=== PATIENT | male | born 1995 | race Caucasian/White ===

== ENCOUNTER 2023-04-03 18:57 | Emergency (ER) | payer SELFPAY ==
--- NOTE | ~2023-04-03 | CT_ITS ---
EXAMINATION: CT ABDOMEN AND PELVIS WITH CONTRAST CLINICAL INFORMATION: Pain COMPARISON: 09/21/2015 report only TECHNIQUE: Multidetector volumetric images were obtained from the superior aspect of the liver through the pubic symphysis following administration 85 mL of Omnipaque 350 intravenous contrast. Sagittal and coronal reformatted images were obtained on the technologist's workstation. Oral contrast: No This CT examination was performed using dose optimization techniques as appropriate, variously including the following: *Automated exposure control *Adjustment of mA and/or kV according to patient size (this includes techniques or standardized protocols for targeted exams where dose is matched to indication/reason for exam; i.e. extremities or head) *Use of iterative reconstruction technique DLP: 847 mGy-cm FINDINGS: LUNG BASES: The visualized lung bases are unremarkable. LIVER, GALLBLADDER, AND BILIARY TREE: The liver is normal in size, shape, and attenuation. No focal hepatic lesion or biliary ductal dilatation is present. The gallbladder is unremarkable with no evidence of radiopaque gallstones, gallbladder wall thickening, or obvious pericholecystic inflammatory changes. PANCREAS: Unremarkable. SPLEEN: Unremarkable. ADRENAL GLANDS: Unremarkable. KIDNEYS AND URETERS: Bilateral nephrograms are symmetric. No hydronephrosis or obstructing calculus identified. BLADDER: Minimally distended and not well evaluated. GASTROINTESTINAL TRACT: No convincing evidence for bowel obstruction. There is a thick-walled appearance of multiple small bowel loops throughout the abdomen, raising suspicion for an enteritis. There is mild associated mesenteric stranding as well as trace pelvic free fluid. No free air is seen. The appendix is unremarkable. No abnormal colonic wall thickening. ABDOMINAL WALL: No significant hernia is appreciated. LYMPH NODES: Normal. VASCULAR: Unremarkable. PELVIC VISCERA: Unremarkable. OSSEOUS STRUCTURES: Grade 1 retrolisthesis of L2 on L3. CT/CT abdomen pelvis w IV con IMPRESSION: Thick-walled appearance of multiple small bowel loops throughout the abdomen, raising suspicion for an enteritis. Mild associated mesenteric stranding and trace free fluid.
[2023-04-03 19:14] VITALS: BP 166/107; PULSE 98; RESP 16; TEMP 36.8; O2SAT 94; BMI 41.6
--- NOTE | 2023-04-03 19:14 | ED.GENADULT ---
HPI - General Adult General Chief complaint: Abdominal Pain Stated complaint: vomiting , pain in stomach Time Seen by Provider: 04/04/23 00:28 Source: patient, RN notes reviewed and old records reviewed Mode of arrival: ambulatory Limitations: no limitations History of Present Illness HPI narrative: 27-year-old male presents for evaluation of abdominal pain and vomiting. Patient reports his symptoms started about a day and a half ago. His symptoms started after eating seafood at the [email or web address] restaurant He reports upper abdominal pain with nausea vomiting and diarrhea. Denies any black or bloody stool. He denies any history abdominal surgeries Denies any fevers, chills He has not been on any antibiotics in the last month Related Data Previous Rx's Medication Instructions Recorded ondansetron 4 mg disintegrating 4 mg PO Q8H PRN nausea and 04/04/23 tablet vomiting #20 tabs Allergies Allergy/AdvReac Type Severity Reaction Status Date / Time peanut [Peanut] Allergy Severe ANAPHYLAXIS Verified 04/04/23 04:39 Iodinated Contrast Media Allergy Hives Verified 04/04/23 04:39 [Contrast Dye] peanuts Allergy Unknown Anaphylaxis Uncoded 04/04/23 03:34 Review of Systems Constitutional: Constitutional: Denies chills and Denies fever(s) Eyes: Eyes: Denies blurry vision Cardiovascular: Cardiovascular: Denies chest pain and Denies dyspnea Respiratory: Respiratory: Denies cough and Denies dyspnea Gastrointestinal: Gastrointestinal: Reports abdominal pain, Denies hematochezia, Reports diarrhea, Reports loose stools, Reports nausea and Reports vomiting Genitourinary: Genitourinary: Denies dysuria Musculoskeletal: Musculoskeletal: Denies back pain Integumentary/Breasts: Skin/Breast: Denies rash PMFSH Social History Social History Unable to assess alcohol history related to: Unknown Smoked in Last 30 Days: No Use of substances other than those prescribed or required for medical reasons: Unknown Advance Directives: No Advance Directives Information Provided: No Physical Exam ED Vital Signs: Vital Signs - 24 hr 04/03/23 19:14 04/04/23 01:02 04/04/23 02:43 Temperature 98.2 F 98.0 F Pulse Rate 98 91 123 H Respiratory Rate 16 16 22 H Blood Pressure 166/107 H 148/94 H Pulse Oximetry 94 96 Oxygen Delivery Method Room Air Room Air 04/04/23 06:24 Temperature 98.0 F Pulse Rate 104 H Respiratory Rate 13 Blood Pressure 127/72 Pulse Oximetry 95 Oxygen Delivery Method Room Air BMI result Body Mass Index 41.6 Const General: healthy appearing, comfortable, no acute distress, alert and awake Nutritional Appearance: well nourished Orientation/consciousness: patient oriented x3 HENMT Head: Yes normocephalic and Yes atraumatic Eyes Eyelids: Yes eyelids normal Conjunctivae: conjunctivae normal Sclerae: sclerae normal Corneas: corneas normal Pupils: Equal, round and reactive pupils present EOM: EOMs intact bilaterally Neck Neck: Yes full ROM Resp Effort & Inspection: normal respiratory effort, able to speak in complete sentences and not labored Cardio Rate: regular rate Rhythm: regular rhythm GI Inspection: No distended Palpation (GI): Soft to palpation, not firm, Tenderness to palpation present (GI) in the epigastrum and in the LUQ; not in the LLQ, not in the RLQ and not in the RUQ, no guarding and not rigid Auscultation: normoactive bowel sounds Skin General skin exam: elasticity normal Neuro General: patient oriented x3 Cranial nerves: Yes Equal, round and reactive pupils present and Yes Bilaterally intact EOM present Cognition (Neuro): normal cognition Extrem Other: Moving all extremities well without any obvious deformities Course Course Course Narrative: This is a rapid medical exam: Additional HPI, ROS, PE not included below will be deferred to primary provider. Patient is a 27-year-old male presenting to the emergency department with complaint of nausea, vomiting, and diarrhea for 1.5 days as well as epigastric abdominal pain. Took immodium with little relief. Unable to tolerate anything PO today. Denies fevers. Plan: Labs, UA Reevaluation(s) Reevaluation #1: Discussed entire workup with the patient including imaging. He will be discharged with symptomatic care Time: 01:43 Medications Administered Discontinued Medications Generic Name Dose Route Start Last Admin Trade Name Freq PRN Reason Stop Dose Admin Albuterol Sulfate 5 mg 04/04/23 02:31 04/04/23 02:42 Albuterol Sulfate (0.083%) 2.5 Mg/3 Ml Vial.Neb INHALE 04/04/23 02:32 5 mg ONCE ONE Administration Diphenhydramine HCl 50 mg 04/04/23 02:07 04/04/23 02:10 Diphenhydramine Hcl 50 Mg/Ml Vial IVPUSH 04/04/23 02:08 50 mg ONCE ONE Administration Famotidine 20 mg 04/04/23 02:07 04/04/23 02:10 Famotidine/Pf 20 Mg/2 Ml Vial IVPUSH 04/04/23 02:08 20 mg ONCE ONE Administration Sodium Chloride 1,000 mls @ 999 mls/hr 04/04/23 00:45 04/04/23 02:08 Ns IV 04/04/23 01:45 Infused .Q1H1M CARLIN Infusion Sodium Chloride 1,000 mls @ 999 mls/hr 04/04/23 02:07 04/04/23 03:34 Ns IVCONT 04/04/23 03:07 Infused .Q1H1M ONE Infusion Iohexol 85 ml 04/04/23 00:59 04/04/23 01:01 Iohexol 350 Mg/Ml 100 Ml Infus..Btl IV 04/04/23 01:00 85 ml ONCE ONE Administration Ketorolac Tromethamine 30 mg 04/04/23 00:33 04/04/23 00:57 Ketorolac Tromethamine 30 Mg/Ml Vial IVPUSH 04/04/23 00:34 30 mg ONCE ONE Administration Lorazepam 1 mg 04/04/23 02:56 04/04/23 04:26 Lorazepam 1 Mg Tablet PO 04/04/23 02:57 Not Given ONCE ONE Methylprednisolone Sodium Succinate 125 mg 04/04/23 02:07 04/04/23 02:10 Methylprednisolone Sod Succ 125 Mg/2 Ml Vial IVPUSH 04/04/23 02:08 125 mg ONCE ONE Administration Ondansetron HCl 4 mg 04/04/23 00:35 04/04/23 00:57 Ondansetron Hcl 4 Mg/2 Ml Vial IVPUSH 04/04/23 00:36 4 mg ONCE ONE Administration Ondansetron HCl 4 mg 04/04/23 02:56 04/04/23 04:30 Ondansetron Hcl 4 Mg/2 Ml Vial IVPUSH 04/04/23 02:57 Not Given ONCE ONE Pantoprazole Sodium 40 mg 04/04/23 00:33 04/04/23 00:57 Pantoprazole Sodium 40 Mg/10 Ml Vial IVPUSH 04/04/23 00:34 40 mg ONCE ONE Administration Medical Decision Making Medical Decision Making MDM Narrative: 27-year-old male presents for evaluation of abdominal pain, nausea and vomiting. His symptoms are rather acute. After eating at a restaurant. He has associated diarrhea. His abdominal exam is positive for subjective tenderness without rebound or guarding. His abdomen is nondistended but obese. He is having bowel movements, no suspicion for bowel obstruction. His white count is noted be elevated at 17.6. This most likely reflects a viral gastroenteritis. However given the elevated white count is CT scan of the abdomen pelvis to rule out other pathology. Other pathology anxiety biliary disease, cholelithiasis, pancreatitis, acute appendicitis is less likely as the patient does not have any right lower quadrant tenderness -02:05: Patient ready for discharge. However, the nurse informed me that the patient started having skin flushing, hives in upper body including arms torso and back. Patient likely have an allergic reaction to IV contrast. Airways intact, no wheezing, oxygen saturation 93% on room air. -patient receiving at this time IV fluids, Solu-Medrol, Pepcid, Benadryl, albuterol treatment -patient ready for discharge -I have personally provided 45 minutes of critical care time. Time includes review of lab data, radiology results, discussion with consultants, and monitoring for potential decompensation. Intervention performed as documented. Differential Diagnosis Differential Diagnoses: The differential diagnosis associated with the presentation includes Gastroenteritis Gastritis Stomach ulcers Peptic ulcer disease Pancreatitis Peptic ulcer disease Lab Data MDM Lab Attestation statement: I reviewed the patient's lab results. Leukocytosis to 17.6 with a left shift. Patient's hemoglobin and hematocrit are elevated slightly above normal which is likely rib indicative of dehydration and hemoconcentration. No significant electrolyte abnormalities. 04/03/23 19:31 04/03/23 19:31 Labs: Lab Results 04/03/23 04/03/23 Range/Units 19:31 19:43 WBC 17.6 H (4.8-10.8) X10*3/uL RBC 6.12 H (4.60-5.80) X10*6/uL Hgb 18.7 H (14.0-18.0) g/dl Hct 53.9 H (42.0-52.0) % MCV 88.1 (80.0-98.0) fL MCH 30.6 (27.0-33.0) pg MCHC 34.7 (31.0-36.0) g/dl RDW 12.5 (11.0-16.0) % Plt Count 236 (160-400) X10*3/uL MPV 11.7 (9.4-12.4) fL Immature Gran % (Auto) 0.3 (0.0-0.4) % Neut % (Auto) 83.1 H (45-73) % Lymph % (Auto) 10.7 L (20-40) % Cole % (Auto) 4.8 (2-11) % Eos % (Auto) 0.9 (0-4) % Baso % (Auto) 0.2 (0-2) % Lymph # (Auto) 1.9 (1.2-4.9) X10*3/uL Cole # (Auto) 0.9 (0.1-1.2) X10*3/uL Eos # (Auto) 0.2 (0.0-0.4) X10*3/uL Baso # (Auto) 0.0 (0.0-0.2) X10*3/uL Abs Immat Gran (auto) 0.06 H (0.00-0.03) X10*3/uL Absolute Neuts (auto) 14.6 H (2.0-8.3) x10*3/uL Absolute Nucleated RBC 0.000 (0.0-0.012) X10*3/uL Nucleated RBC % (auto) 0.0 (0.0-0.2) /100WBC Sodium 142 (135-145) mmol/L Potassium 3.9 (3.3-5.1) mmol/L Chloride 108 (96-108) mmol/L Carbon Dioxide 20 L (22-29) mmol/L Anion Gap 18 (12-20) BUN 11 (9-16) mg/dL Creatinine 0.87 (0.5-1.4) mg/dL Estim Creat Clear Calc 145.7 Estimated GFR > 60 Random Glucose 111 (60-115) mg/dL Calcium 9.7 (8.4-10.2) mg/dL Magnesium 1.8 (1.6-2.6) mg/dL Total Bilirubin 1.0 (0.0-1.0) mg/dL AST 21 (5-37) U/L ALT 34 (0-40) U/L Alkaline Phosphatase 89 (39-117) U/L Total Protein 7.6 (6.5-8.0) g/dL Albumin 4.8 (3.5-5.0) g/dL Lipase 15 (8-78) U/L Urine Color Dark Yellow Urine Appearance Clear Urine pH 5.5 (5.0-9.0) Ur Specific [place] 1.025 (1.005-1.025) Urine Protein Trace (Neg-Trace) mg/dL Urine Glucose (UA) Negative (Negative) mg/dL Urine Ketones Negative (Negative) mg/dL Urine Blood Negative (Negative) Urine Nitrite Negative (Negative) Ur Leukocyte Esterase Negative (Negative) COVID-19 ([place]) Negative (Negative) COVID-19 Clin Com See Note Influenza Type A ([facility]) Negative (Negative) Influenza Type B ([facility]) Negative (Negative) Influenza A & B Note See Note Independent Interpretation I performed an independent interpretation of an: CT Scan (Dilated bowel loops but nonobstructive pattern) Radiology Impression Discussion of test interpretation with radiology: I have reviewed the radiologist's reading. (Thick-walled appearance of multiple small bowel loops throughout the abdomen raising suspicion for enteritis. Mild associated mesenteric stranding and trace free fluid) Discharge Plan Discharge Clinical Impression: Enteritis, Allergic reaction to contrast dye Patient Disposition: Home, Self-Care Instructions: Enteritis (ED) Additional Instructions: Shows viral inflammation consistent with a stomach virus Drink lots of fluids. A diet consisting of bananas, rice, applesauce, toast can help slow down diarrhea He may also use [id number] Imodium Use Zofran as needed for nausea or vomiting Follow-up with your primary doctor Prescriptions: New ondansetron 4 mg tablet,disintegrating 4 mg PO Q8H PRN (Reason: nausea and vomiting) Qty: 20 0RF Stand Alone Forms: Work/School Release
[2023-04-03 19:44] LABS: MANUAL DIFF FLAG NO
[2023-04-03 19:48] LABS: Basophils Percent Auto 0.2 % (0-2); Eosinophils Absolute Auto 0.2 X10*3/uL (0.0-0.4); Eosinophils Percent Auto 0.9 % (0-4); Hematocrit 53.9 % (42.0-52.0); Hemoglobin 18.7 g/dl (14.0-18.0); Imm Gran Abs Auto 0.06 X10*3/uL (0.00-0.03); Imm Gran Pct Auto 0.3 % (0.0-0.4); Lymphocytes Absolute Auto 1.9 X10*3/uL (1.2-4.9); Lymphocytes Percent Auto 10.7 % (20-40); Mean Corpuscular HGB Conc 34.7 g/dl (31.0-36.0); Mean Corpuscular Hemoglobin 30.6 pg (27.0-33.0); Mean Corpuscular Volume 88.1 fL (80.0-98.0); Mean Platelet Volume 11.7 fL (9.4-12.4); Monocytes Absolute Auto 0.9 X10*3/uL (0.1-1.2); Monocytes Percent Auto 4.8 % (2-11); Neutrophils Absolute Auto 14.6 x10*3/uL (2.0-8.3); Neutrophils Percent Auto 83.1 % (45-73); Platelet Count 236 X10*3/uL (160-400); Red Blood Count 6.12 X10*6/uL (4.60-5.80); Red Cell Distribution Width 12.5 % (11.0-16.0); White Blood Count 17.6 X10*3/uL (4.8-10.8)
[2023-04-03 19:49] LABS: Appearance Urine Clear; Color Urine Dark Yellow; Glucose Urine UA Negative (Negative); Leukocyte Esterase Urine Negative (Negative); Nitrite Urine Negative (Negative); PH 5.5 (5.0-9.0); Specific Gravity - Urine 1.025 (1.005-1.025); Urine Blood Negative (Negative); Urine Ketones Negative (Negative); Urine Protein Trace mg/dL (Neg-Trace)
[2023-04-03 20:01] LABS: Alanine Aminotransferase 34 U/L (0-40); Albumin Level 4.8 g/dL (3.5-5.0); Alkaline Phosphatase 89 U/L (39-117); Anion Gap 18 (12-20); Aspartate Amino Transferase 21 U/L (5-37); Blood Urea Nitrogen 11 mg/dL (9-16); Calcium 9.7 mg/dL (8.4-10.2); Carbon Dioxide 20 mmol/L (22-29); Chloride 108 mmol/L (96-108); Creatinine Clr Calc Pharmacy 145.7; Estimated Glomerular Filt Rate > 60; Glucose Random 111 mg/dL (60-115); IDNOW Serial# 08D9AD1C; Lipase 15 U/L (8-78); Magnesium 1.8 mg/dL (1.6-2.6); Potassium 3.9 mmol/L (3.3-5.1); Sodium 142 mmol/L (135-145); Total Protein 7.6 g/dL (6.5-8.0)
[2023-04-03 20:02] LABS: COVID-19 Test Negative (Negative)
[2023-04-03 20:04] LABS: IDNOW Serial# BCCEAD1C; Influenza A Negative (Negative); Influenza B2 Negative (Negative)
[2023-04-04] MEDS: 0.9 % Sodium Chloride 1,000 ML 999 ML IV (00:56)
[2023-04-04] MEDS: Pantoprazole Sodium 40 MG/10 ML VIAL IVPUSH (00:57)
[2023-04-04] MEDS: Ketorolac Tromethamine 30 MG/ML VIAL IVPUSH (00:57)
[2023-04-04] MEDS: ondansetron HCL 4 MG/2 ML VIAL IVPUSH (00:57)
[2023-04-04] MEDS: iohexoL 350 MG/ML 100 ML INFUS..BTL 85 ML IV (01:01)
[2023-04-04 01:02] VITALS: BP 148/94; PULSE 91; RESP 16; TEMP 36.7; O2SAT 96
[2023-04-04] MEDS: 0.9 % Sodium Chloride 1,000 ML 999 ML IVCONT (02:09)
[2023-04-04] MEDS: diphenhydrAMINE HCL 50 MG/ML VIAL IVPUSH (02:10)
[2023-04-04] MEDS: Famotidine/PF 20 MG/2 ML VIAL IVPUSH (02:10)
[2023-04-04] MEDS: methylPREDNISolone Sod Succ 125 MG/2 ML VIAL IVPUSH (02:10)
[2023-04-04] MEDS: Albuterol Sulfate (0.083%) 2.5 MG/3 ML VIAL.NEB 5 MG INHALE (02:42)
[2023-04-04 02:43] VITALS: PULSE 123; RESP 22; O2SAT 91
--- NOTE | 2023-04-04 02:44 | PC.NURSE ---
pt rpts sudden onset of itching, hives, feeling restless, and short of breath. MD notified. meds ordered and administered per AUG. pt still rpts feeling no relief. HR130 SPO2 90% RA. notified. neb treatment ordered. resp at bedside.
--- NOTE | 2023-04-04 02:56 | ECG_ITS ---
Test Reason : CHEST PAIN ANXIETY Blood Pressure : / mmHG Vent. Rate : 126 BPM Atrial Rate : 126 BPM P-R Int : 130 ms QRS Dur : 094 ms QT Int : 326 ms P-R-T Axes : 071 091 042 degrees QTc Int : 472 ms Sinus tachycardia Rightward axis Borderline ECG No previous ECGs available Referred By: Cherie Graham Electronically Signed By:HUSSEIN SIERRA MD
--- NOTE | 2023-04-04 04:06 | PC.NURSE ---
FLoat RN to bedside to assess pt's low O2 sat of 88%. Upon arrival to bedside pt noted to be resting in stretcher in a slouched like position (lower in the bed than supposed to be with HOB elevated) with eyes closed, respirations even and unlabored with a beautiful pleth wave still reading 88%. Pt was easily arousbale to verbal stimuli at which point the pt was placed on 2LPM via NC for supplemental O2 while resting and until a disposition is received for the pt; ready for dc is no longer application at this time.
[2023-04-04 06:24] VITALS: BP 127/72; PULSE 104; RESP 13; TEMP 36.7; O2SAT 95
== END 2023-04-04 08:23 | disposition home or self-care (01) ==
PROVIDERS: Registered Nurse Emergency; Emergency Provider Emergency Medicine
DX: K52.9 Noninfective gastroenteritis and colitis, unspecified (principal); L50.9 Urticaria, unspecified; T50.8X5A Adverse effect of diagnostic agents, initial encounter; Y92.238 Other place in hospital as the place of occurrence of the external cause; R10.9 Unspecified abdominal pain; R11.2 Nausea with vomiting, unspecified; Z11.52 Encounter for screening for COVID-19
CPT/HCPCS: 74177; 80053; 81003; 83690; 83735; 85025; 87502; 87635; 93005; 94640; 96361; 96374; 96375; 99285; J1200; J1885; J2405; J2930; Q9967

== ENCOUNTER 2024-04-04 20:32 | Emergency (ER) | payer MEDICAID, SELFPAY ==
[2024-04-04] VITALS (7 sets, daily range): BP systolic 123–171; BP diastolic 66–99; PULSE 87–117; RESP 14–22; TEMP 36.4–36.7; O2SAT 93–99; BMI 43.3
[2024-04-04] MEDS: diphenhydrAMINE HCL 50 MG/ML VIAL IVPUSH (20:57)
[2024-04-04] MEDS: Famotidine/PF 20 MG/2 ML VIAL IVPUSH (20:58)
[2024-04-04] MEDS: methylPREDNISolone Sod Succ 125 MG/2 ML VIAL IVPUSH (20:58)
--- NOTE | 2024-04-04 21:02 | ED_ITS ---
HPI - Allergic Reaction General Chief complaint: Allergic Reaction Stated complaint: allergic reaction Time Seen by Provider: 04/04/24 21:01 Source: patient History of Present Illness ED Provider: Marita PRABHAKAR narrative: This is a 28-year-old male presents for allergic reaction. Patient states that he ate a burger for [employer] earlier in the day today and later on in the evening he was helping his friend move a table when he began experiencing itching and swelling to his face. He is not sure what he came in contact with however he was sure that he was having allergic reaction. Patient states that he is allergic to peanuts however there were no peanuts around him. He does endorse mild throat itching however does not have any significant difficulty breathing. He took 1 tablet of Benadryl before coming to the emergency dep artment. He denies chest pain, lightheadedness, abdominal pain, nausea, vomiting. MD complaint: allergic reaction Related Data Previous Rx's ?Medication ?Instructions ?Recorded ondansetron 4 mg disintegrating 4 mg PO Q8H PRN nausea and 04/04/23 tablet vomiting #20 tabs epinephrine 0.3 mg/0.3 mL 0.3 mg (0.3 mL) IM Q15M PRN 04/05/24 injection, auto-injector (EpiPen anaphylaxis #2 ea 2-Tony) prednisone 50 mg tablet 50 mg PO DAILY 4 days #4 tabs 04/05/24 Allergies Allergy/AdvReac Type Severity Reaction Status Date / Time peanut [Peanut] Allergy Severe ANAPHYLAXIS Verified 04/04/24 20:51 Iodinated Contrast Media Allergy Hives Verified 04/04/24 20:51 [Contrast Dye] peanuts Allergy Unknown Anaphylaxis Uncoded 04/04/24 20:51 Review of Systems Review of Systems: Patient endorses itching and swelling Yes all other systems are reviewed and are negative PMFSH Social History Social History Unable to assess alcohol history related to: Unknown Advance Directives: No Advance Directives Information Provided: No Do you have a plan to hurt others: No Plan Physical Exam ED Vital Signs: Vital Signs - 24 hr 04/04/24 20:48 04/04/24 20:57 04/04/24 21:12 Temperature 97.6 F 97.9 F Pulse Rate 117 H 109 H 103 H Respiratory Rate 22 H 14 22 H Blood Pressure 171/99 H 164/95 H 144/88 H Pulse Oximetry 96 93 93 Oxygen Delivery Method Room Air Room Air Room Air 04/04/24 21:29 04/04/24 21:42 04/04/24 21:57 Temperature 98.1 F Pulse Rate 92 89 87 Respiratory Rate 20 18 18 Blood Pressure 139/66 131/75 123/76 Pulse Oximetry 99 95 95 Oxygen Delivery Method Room Air Room Air Room Air 04/04/24 23:30 Temperature 98.0 F Pulse Rate 100 Respiratory Rate 17 Blood Pressure 129/78 Pulse Oximetry 96 Oxygen Delivery Method Room Air BMI result Body Mass Index 43.3 Patient is not in any acute distress with unlabored breathing Facial swelling and urticaria; urticaria to torso Oropharynx clear without any appreciable swelling; no stridor auscultated in lungs clear to auscultation bilaterally Normal S1-S2 tachycardic Abdomen is soft nontender nondistended Medications Administered Discontinued Medications Generic Name Dose Route Start Last Admin Trade Name Freq PRN Reason Stop Dose Admin Diphenhydramine HCl 50 mg 04/04/24 20:54 04/04/24 20:57 Diphenhydramine Hcl 50 Mg/Ml Vial IVPUSH 04/04/24 20:55 50 mg ONCE ONE Administration Famotidine 20 mg 04/04/24 20:54 04/04/24 20:58 Famotidine/Pf 20 Mg/2 Ml Vial IVPUSH 04/04/24 20:55 20 mg ONCE ONE Administration Methylprednisolone Sodium Succinate 125 mg 04/04/24 20:54 04/04/24 20:58 Methylprednisolone Sod Succ 125 Mg/2 Ml Vial IVPUSH 04/04/24 20:55 125 mg ONCE ONE Administration Medical Decision Making Medical Decision Making [facility] Narrative: 28-year-old male presents for allergic reaction. At this time I am not concerned for anaphylaxis as patient has no respiratory issues and has stable vitals -Benadryl, steroids and Pepcid given -will observe and reassess -on reassessment patient is swelling and urticaria has improved and he reports significant improvement in symptoms -I sent prednisone and an EpiPen to his pharmacy and gave him follow up instructions and return precautions Differential Diagnosis Differential Diagnoses: The differential diagnosis associated with the presentation includes Allergic reaction, anaphylaxis Discharge Plan Discharge Clinical Impression: Allergic reaction Patient Disposition: Home, Self-Care Instructions: Anaphylaxis (ED), General Allergic Reaction (ED) Additional Instructions: Please crop picker your new medication and take as instructed Please follow up with your primary care provider in the next 24-48 hours If you develop any new or worsening symptoms please return to emergency department Prescriptions: New prednisone 50 mg tablet 50 mg PO DAILY 4 Days Qty: 4 0RF epinephrine [EpiPen 2-Tony] 0.3 mg/0.3 mL auto-injector 0.3 mg IM Q15M PRN (Reason: anaphylaxis) Qty: 2 0RF Rx Instructions: not to exceed 6 doses per episode No Action ondansetron 4 mg tablet,disintegrating 4 mg PO Q8H PRN (Reason: nausea and vomiting) Qty: 20 0RF Print Language: Tamazight
--- NOTE | 2024-04-04 21:03 | ECG_ITS ---
Test Reason : allergic reaction Blood Pressure : / mmHG Vent. Rate : 093 BPM Atrial Rate : 093 BPM P-R Int : 152 ms QRS Dur : 100 ms QT Int : 364 ms P-R-T Axes : 053 060 033 degrees QTc Int : 452 ms Normal sinus rhythm Normal ECG When compared with ECG of 04-APR-2023 02:58, No significant change was found Referred By: Rishabh Kirkland Electronically Signed By:Bruno Cosby
[2024-04-05 00:30] VITALS: BP 129/78; PULSE 100; RESP 17; TEMP 36.7; O2SAT 96
== END 2024-04-05 00:32 | disposition home or self-care (01) ==
PROVIDERS: Emergency Provider Student in an Organized Health Care Education/Training Program
DX: T78.40XA Allergy, unspecified, initial encounter (principal); L29.9 Pruritus, unspecified; X58.XXXA Exposure to other specified factors, initial encounter; Z79.899 Other long term (current) drug therapy
CPT/HCPCS: 93005; 96374; 96375; 99284; J1200; J2919

== ENCOUNTER → 2024-04-04 21:03 | Outpatient (BNV) | payer MEDICAID, SELFPAY | PROVIDERS: Emergency Provider Student in an Organized Health Care Education/Training Program; Visit Provider Internal Medicine Cardiovascular Disease | DX: T78.40XA Allergy, unspecified, initial encounter (principal) | CPT/HCPCS: 93010 ==

== ENCOUNTER 2024-04-16 14:28 | Emergency (ER) | payer OTHER, SELFPAY ==
--- NOTE | ~2024-04-16 | CT_ITS ---
EXAMINATION: CT ABDOMEN AND PELVIS WITHOUT CONTRAST CLINICAL INFORMATION: Diffuse abdominal pain COMPARISON: CT abdomen pelvis 04/04/23 TECHNIQUE: Multidetector volumetric imaging was performed from the superior aspect of the liver through the pubic symphysis. Sagittal and coronal reformatted images were obtained on the technologist's workstation. This CT examination was performed using dose optimization techniques as appropriate, variously including the following: *Automated exposure control *Adjustment of mA and/or kV according to patient size (this includes techniques or standardized protocols for targeted exams where dose is matched to indication/reason for exam; i.e. extremities or head) *Use of iterative reconstruction technique DLP: 896 mGy-cm FINDINGS: LUNG BASES: The visualized lung bases are unremarkable. LIVER, GALLBLADDER, AND BILIARY TREE: The liver is enlarged measuring 18.3 cm in greatest length with decreased attenuation consistent with hepatic steatosis. In size, shape, and attenuation. No focal hepatic lesion or biliary ductal dilatation is present. The gallbladder is unremarkable with no evidence of radiopaque gallstones, gallbladder wall thickening, or obvious pericholecystic inflammatory changes. PANCREAS: Unremarkable. SPLEEN: Spleen is mildly enlarged measuring 13.9 cm in greatest transverse dimension. ADRENAL GLANDS: Unremarkable. KIDNEYS AND URETERS: The kidneys are normal in size, shape, and attenuation. No hydronephrosis, hydroureter, or calculi seen. No perinephric stranding. BLADDER: Unremarkable. GASTROINTESTINAL TRACT: The small and large bowel are unremarkable. The appendix is unremarkable. ABDOMINAL WALL: No significant hernia is appreciated. LYMPH NODES: No retroperitoneal lymphadenopathy. VASCULAR: Unremarkable. PELVIC VISCERA: Unremarkable. OSSEOUS STRUCTURES: There is retrolisthesis of L3 upon L4. CT/CT abdomen pelvis wo IV con IMPRESSION: 1. A cause for the patient's diffuse abdominal pain has not been found. 2. Incidental note made of an enlarged fatty liver and mild splenomegaly. Fleischner guidelines were followed. Electronically signed by: Mario Travis MD 04/17/2024 12:36 AM EST
[2024-04-16 15:05] VITALS: BP 142/92; PULSE 114; RESP 20; TEMP 37; O2SAT 95; BMI 44.9
--- NOTE | 2024-04-16 15:13 | ED_ITS ---
HPI - General Adult General Chief complaint: Nausea/Vomiting/Diarrhea Stated complaint: vomiting Time Seen by Provider: 04/16/24 21:37 Source: patient Mode of arrival: ambulatory Limitations: no limitations History of Present Illness ED Provider: Dr. Cherie Graham HPI narrative: Patient comes to the emergency room complaining of nausea vomiting diarrhea and diffuse abdominal discomfort. Symptoms started approximately 2 days ago. Patient states that his father has similar symptoms. Patient denies fever chills, patient states that most of the pain is in the bilateral flanks. Patient tried taking [id number] diarrhea medication without any relief. Patient does no know which medication he took. Related Data Previous Rx's ?Medication ?Instructions ?Recorded ondansetron 4 mg disintegrating 4 mg PO Q8H PRN nausea and 04/04/23 tablet vomiting #20 tabs epinephrine 0.3 mg/0.3 mL 0.3 mg (0.3 mL) IM Q15M PRN 04/05/24 injection, auto-injector (EpiPen anaphylaxis #2 ea 2-Tony) prednisone 50 mg tablet 50 mg PO DAILY 4 days #4 tabs 04/05/24 hyoscyamine sulfate 0.125 mg tablet 0.125 mg PO QID PRN dyspepsia #10 04/17/24 tabs loperamide 2 mg tablet 2 mg PO Q4H PRN loose stool #14 04/17/24 tabs ondansetron 4 mg disintegrating 4 mg PO Q6H PRN nausea and 04/17/24 tablet vomiting #14 tabs Allergies Allergy/AdvReac Type Severity Reaction Status Date / Time peanut [Peanut] Allergy Severe ANAPHYLAXIS Verified 04/16/24 15:06 Iodinated Contrast Media Allergy Hives Verified 04/16/24 15:06 [Contrast Dye] peanuts Allergy Unknown Anaphylaxis Uncoded 04/04/24 20:51 Review of Systems 2 Review of Systems: Constitutional : No Weight loss, No Fever, No Chills, No Night Sweats, No Fatigue, No Malaise ENT/Mouth : No Hearing loss, No Ear Pain, No Nasal Congestion, No Sinus Pain, No Hoarseness, No sore throat, No Rhinorrhea, No Swallowing Difficulty Eyes: No Eye Pain, No Swelling, No Redness, No Foreign Body, No Discharge, No Vision Changes Cardiovascular : No Chest Pain, No SOB, No Dyspnea on Exertion, No Orthopnea, No Edema, No Palpitations Respiratory : No Cough, No Sputum, No Wheezing, No Smoke Exposure, No Dyspnea Gastrointestinal : Complaining of nausea, vomiting diarrhea, diffuse abdominal discomfort Genitourinary : no irregular bleeding, No Dysuria, No Urinary Frequency, No Hematuria, No Urinary Incontinence, No Urgency, No Flank Pain, No Urinary Flow Changes, No Hesitancy Musculoskeletal : No joint pain, No Myalgias, No Joint Swelling Skin : No Skin Lesions, No rash Neuro : No Weakness, No Numbness, No Paresthesias, No Loss of Consciousness, No Dizziness, No Headache Psych : No Anxiety/Panic, No Depression, No SI/HI/AH/VH, No Social Issues, Heme/Lymph: No Bruising, No Bleeding,No Lymphadenopathy Endocrine : No Polyuria, No Polydipsia, No Temperature Intolerance [facility] Social History Social History Unable to assess alcohol history related to: Unknown Smoked in Last 30 Days: Yes Use of substances other than those prescribed or required for medical reasons: Yes Substance Use Type: Marijuana Substance Use Frequency: Chronic Longstanding Any prior treatment program specific to substance use: No Advance Directives: No Advance Directives Information Provided: No Physical Exam ED Vital Signs: Vital Signs - 24 hr 04/16/24 15:05 04/16/24 20:38 04/16/24 21:45 Temperature 98.6 F 98.3 F Pulse Rate 114 H 126 H 93 Respiratory Rate 20 20 20 Blood Pressure 142/92 H 154/89 H Pulse Oximetry 95 94 98 Oxygen Delivery Method Room Air Room Air Room Air 04/16/24 22:17 04/17/24 01:02 04/17/24 01:23 Temperature 98.0 F 98.8 F 98.8 F Pulse Rate 107 H 92 92 Respiratory Rate 18 16 16 Blood Pressure 128/73 138/77 138/77 Pulse Oximetry 96 98 98 Oxygen Delivery Method Room Air Room Air Room Air BMI result Body Mass Index 44.9 Const Other: Appearance: Alert. Oriented X3. No acute distress. Eyes: Pupils equal, round and reactive to light. ENT: Pharynx normal. Neck: Normal inspection. Neck supple. No lymph nodes noted. No crepitus CVS: Normal heart rate and rhythm. Pulses normal. Normal S1 and S2 Respiratory: No respiratory distress. Breath sounds normal. No Wheezing. No rales Abdomen: Soft , diffuse discomfort to palpation in all quadrants, no rebound or guarding Skin: Skin warm and dry. Normal skin color. Normal skin turgor. Extremities: No lower extremity edema. No Lacerations. No Rash Neuro: Oriented X 3. No motor deficit. No sensory deficit. Moving all extremities. No slurred speech. CN 2 through 12 grossly intact Psych: calm, cooperative, normal affect Course Course Course Narrative: RME: 28-year-old male presents to ED for vomiting diarrhea abdominal pain since Tuesday. Labs SARs UA ordered. Patient states no one else at home sick. Patient will be evaluating ED Medications Administered Discontinued Medications Generic Name Dose Route Start Last Admin Trade Name Freq PRN Reason Stop Dose Admin Sodium Chloride 1,000 mls @ 999 mls/hr 04/16/24 22:00 04/16/24 23:30 Ns IVCONT 04/16/24 23:00 Infused .Q1H1M ONE Infusion Loperamide HCl 4 mg 04/16/24 22:00 04/16/24 22:21 Loperamide Hcl 2 Mg Capsule PO 04/16/24 22:01 4 mg ONCE ONE Administration Ondansetron HCl 4 mg 04/16/24 22:00 04/16/24 22:21 Ondansetron Hcl 4 Mg/2 Ml Vial IVPUSH 04/16/24 22:01 4 mg ONCE ONE Administration Medical Decision Making Medical Decision Making [facility] Narrative: My interpretation of labs: Patient's white blood cell count 11.3, elevated hemoglobin hematocrit normal platelets. Chemistry within normal limits, LFTs normal, lipase normal. Urinalysis negative for UTI -patient receiving IV fluids, Zofran and loperamide. -CT scan of the abdomen my interpretation, no significant abnormality. No SBO. CT scan of the abdomen could not be done with contrast due to allergy contrast = CT scan does not show any acute abnormality. Overall patient feeling better. Patient likely having gastritis, versus gastroenteritis, colitis, enteritis Differential Diagnosis Differential Diagnoses: The differential diagnosis associated with the presentation includes (As above) Admission/Observation Consideration of admission/observation: Escalation of care including admission/observation considered (In patient's presentation and labs, observation was considered.) Lab Data [facility] Lab Attestation statement: I reviewed the patient's lab results. 04/16/24 15:50 04/16/24 15:50 Labs: Lab Results 11/04/24 11/04/24 Range/Units 15:50 20:42 WBC 25.3 H (4.8-10.8) X10*3/uL RBC 6.00 H (4.60-5.80) X10*6/uL Hgb 18.8 H (14.0-18.0) g/dl Hct 54.1 H (42.0-52.0) % MCV 90.2 (80.0-98.0) fL MCH 31.3 (27.0-33.0) pg MCHC 34.8 (31.0-36.0) g/dl RDW 12.9 (11.0-16.0) % Plt Count 257 (160-400) X10*3/uL MPV 11.3 (9.4-12.4) fL Immature Gran % (Auto) 0.9 H (0.0-0.4) % Neut % (Auto) 84.2 H (45-73) % Lymph % (Auto) 9.4 L (20-40) % [place] % (Auto) 4.8 (2-11) % Eos % (Auto) 0.4 (0-4) % Baso % (Auto) 0.3 (0-2) % Lymph # (Auto) 2.4 (1.2-4.9) X10*3/uL [place] # (Auto) 1.2 (0.1-1.2) X10*3/uL Eos # (Auto) 0.1 (0.0-0.4) X10*3/uL Baso # (Auto) 0.1 (0.0-0.2) X10*3/uL Abs Immat Gran (auto) 0.24 H (0.00-0.03) X10*3/uL Absolute Neuts (auto) 21.3 H (2.0-8.3) x10*3/uL Absolute Nucleated RBC 0.000 (0.0-0.012) X10*3/uL Nucleated RBC % (auto) 0.0 (0.0-0.2) /100WBC Smear Tech's Comments VERIFIED PT 10.8 L (10.9-12.4) SEC INR 0.9 (0.9-1.1) APTT 28.6 (26.0-36.8) SEC Sodium 139 (135-145) mmol/L Potassium 4.9 (3.3-5.1) mmol/L Chloride 107 (96-108) mmol/L Carbon Dioxide 21 L (22-29) mmol/L Anion Gap 16 (12-20) BUN 13 (9-16) mg/dL Creatinine 0.78 (0.5-1.4) mg/dL Estim Creat Clear Calc 168.2 Estimated GFR > 60 Random Glucose 106 (60-115) mg/dL Calcium 9.6 (8.4-10.2) mg/dL Total Bilirubin 0.7 (0.0-1.0) mg/dL AST 43 H (5-37) U/L ALT 49 H (0-40) U/L Alkaline Phosphatase 83 (39-117) U/L Total Protein 7.6 (6.5-8.0) g/dL Albumin 4.2 (3.5-5.0) g/dL Lipase 15 (8-78) U/L Urine Color Dark Yellow Urine Appearance Clear Urine pH 5.5 (5.0-9.0) Ur Specific [place] >= 1.030 H (1.005-1.025) Urine Protein Trace (Neg-Trace) mg/dL Urine Glucose (UA) Negative (Negative) mg/dL Urine Ketones Trace (Negative) mg/dL Urine Blood Negative (Negative) Urine Nitrite Negative (Negative) Ur Leukocyte Esterase Negative (Negative) Urine Opiates Screen POSITIVE H (Not Detect) Ur Buprenorphine Scrn Not Detected (Not Detect) ng/mL Ur Oxycodone Screen Positive H (Not Detect) ng/mL Urine Methadone Screen Not Detected (Not Detect) ng/mL Urine Fentanyl Screen Not Detected (Not Detect) Ur Barbiturates Screen Not Detected (Not Detect) Ur Phencyclidine Scrn Not Detected (Not Detect) Ur Amphetamines Screen Not Detected (Not Detect) U Benzodiazepines Scrn Not Detected (Not Detect) Urine Cocaine Screen Not Detected (Not Detect) U Marijuana (THC) Screen POSITIVE H (Not Detect) Influenza Type A (PCR) NEGATIVE (Negative) Influenza Type B (PCR) NEGATIVE (Negative) RSV RNA Qual (PCR) NEGATIVE (Negative) SARS-CoV-2 RNA (RT-PCR) NEGATIVE (Negative) Independent Interpretation I performed an independent interpretation of an: CT Scan Interpretation: FINDINGS: LUNG BASES: The visualized lung bases are unremarkable. LIVER, GALLBLADDER, AND BILIARY TREE: The liver is normal in size, shape, and attenuation. No focal hepatic lesion or biliary ductal dilatation is present. The gallbladder is unremarkable with no evidence of radiopaque gallstones, gallbladder wall thickening, or obvious pericholecystic inflammatory changes. PANCREAS: Unremarkable. SPLEEN: Unremarkable. ADRENAL GLANDS: Unremarkable. KIDNEYS AND URETERS: Bilateral nephrograms are symmetric. No hydronephrosis or obstructing calculus identified. BLADDER: Minimally distended and not well evaluated. GASTROINTESTINAL TRACT: No convincing evidence for bowel obstruction. There is a thick-walled appearance of multiple small bowel loops throughout the abdomen, raising suspicion for an enteritis. There is mild associated mesenteric stranding as well as trace pelvic free fluid. No free air is seen. The appendix is unremarkable. No abnormal colonic wall thickening. ABDOMINAL WALL: No significant hernia is appreciated. LYMPH NODES: Normal. VASCULAR: Unremarkable. PELVIC VISCERA: Unremarkable. OSSEOUS STRUCTURES: Grade 1 retrolisthesis of L2 on L3. CT/CT abdomen pelvis w IV con IMPRESSION: Thick-walled appearance of multiple small bowel loops throughout the abdomen, raising suspicion for an enteritis. Mild associated mesenteric stranding and trace free fluid. Critical Care Time Critical Care Time Critical Care Time: Yes Total Critical Care Time: 45 Attestation: I have personally provided critical care time. Time includes review of lab data, radiology results, discussion with consultants, and monitoring for potential decompensation. Intervention performed as documented. Discharge Plan Discharge Clinical Impression: Enteritis Patient Disposition: Home, Self-Care Instructions: Enteritis (ED) Additional Instructions: Please follow-up with your primary care physician tomorrow. If you have any worsening or new symptoms, please return to the emergency room or call 911 Prescriptions: New ondansetron 4 mg tablet,disintegrating 4 mg PO Q6H PRN (Reason: nausea and vomiting) Qty: 14 0RF loperamide 2 mg tablet 2 mg PO Q4H PRN (Reason: loose stool) Qty: 14 0RF Rx Instructions: administer after each loose stool until symptoms controlled; do not exceed 8 mg per 24 hrs hyoscyamine sulfate 0.125 mg tablet 0.125 mg PO QID PRN (Reason: dyspepsia) Qty: 10 0RF No Action ondansetron 4 mg tablet,disintegrating 4 mg PO Q8H PRN (Reason: nausea and vomiting) Qty: 20 0RF prednisone 50 mg tablet 50 mg PO DAILY 4 Days Qty: 4 0RF epinephrine [EpiPen 2-Tony] 0.3 mg/0.3 mL auto-injector 0.3 mg IM Q15M PRN (Reason: anaphylaxis) Qty: 2 0RF Rx Instructions: not to exceed 6 doses per episode Stand Alone Forms: Work/School Release Interventions: ED Discharge Assessment Last Done: 04/17/24 01:23 Discharge Date/Time: 04/17/24 01:23 Print Language: Guyanese
[2024-04-16 16:01] LABS: Basophils Absolute Auto 0.1 X10*3/uL (0.0-0.2); Basophils Percent Auto 0.3 % (0-2); Eosinophils Absolute Auto 0.1 X10*3/uL (0.0-0.4); Eosinophils Percent Auto 0.4 % (0-4); Hematocrit 54.1 % (42.0-52.0); Hemoglobin 18.8 g/dl (14.0-18.0); Imm Gran Abs Auto 0.24 X10*3/uL (0.00-0.03); Imm Gran Pct Auto 0.9 % (0.0-0.4); Lymphocytes Absolute Auto 2.4 X10*3/uL (1.2-4.9); Lymphocytes Percent Auto 9.4 % (20-40); MANUAL DIFF FLAG SCAN; Mean Corpuscular HGB Conc 34.8 g/dl (31.0-36.0); Mean Corpuscular Hemoglobin 31.3 pg (27.0-33.0); Mean Corpuscular Volume 90.2 fL (80.0-98.0); Mean Platelet Volume 11.3 fL (9.4-12.4); Monocytes Absolute Auto 1.2 X10*3/uL (0.1-1.2); Monocytes Percent Auto 4.8 % (2-11); Neutrophils Absolute Auto 21.3 x10*3/uL (2.0-8.3); Neutrophils Percent Auto 84.2 % (45-73); Platelet Count 257 X10*3/uL (160-400); Red Cell Distribution Width 12.9 % (11.0-16.0); SCAN SMEAR FLAG 1; White Blood Count 25.3 X10*3/uL (4.8-10.8)
[2024-04-16 16:09] LABS: INTERNATIONAL NORM RATIO 0.9 (0.9-1.1); Prothrombin Time 10.8 SEC (10.9-12.4)
[2024-04-16 16:11] LABS: Partial Thromboplastin Time 28.6 SEC (26.0-36.8)
[2024-04-16 16:18] LABS: SLIDE REVIEW VERIFIED
[2024-04-16 16:29] LABS: Alanine Aminotransferase 49 U/L (0-40); Albumin Level 4.2 g/dL (3.5-5.0); Alkaline Phosphatase 83 U/L (39-117); Anion Gap 16 (12-20); Aspartate Amino Transferase 43 U/L (5-37); Bilirubin Total 0.7 mg/dL (0.0-1.0); Blood Urea Nitrogen 13 mg/dL (9-16); Calcium 9.6 mg/dL (8.4-10.2); Carbon Dioxide 21 mmol/L (22-29); Chloride 107 mmol/L (96-108); Creatinine Clr Calc Pharmacy 168.2; Estimated Glomerular Filt Rate > 60; Glucose Random 106 mg/dL (60-115); Lipase 15 U/L (8-78); Potassium 4.9 mmol/L (3.3-5.1); Sodium 139 mmol/L (135-145); Total Protein 7.6 g/dL (6.5-8.0)
[2024-04-16 17:05] LABS: Influenza A PCR NEGATIVE (Negative); Influenza B PCR NEGATIVE (Negative); Resp Syncy Virus RNA Qual PCR NEGATIVE (Negative); SARS COV2 PCR INHOUSE NEGATIVE (Negative)
[2024-04-16 20:38] VITALS: BP 154/89; PULSE 126; RESP 20; TEMP 36.8; O2SAT 94
[2024-04-16 20:48] LABS: Appearance Urine Clear; Color Urine Dark Yellow; Glucose Urine UA Negative (Negative); Leukocyte Esterase Urine Negative (Negative); Nitrite Urine Negative (Negative); PH 5.5 (5.0-9.0); Specific Gravity - Urine >= 1.030 (1.005-1.025); Urine Blood Negative (Negative); Urine Ketones Trace mg/dL (Negative); Urine Protein Trace mg/dL (Neg-Trace)
--- NOTE | 2024-04-16 20:53 | PC.NURSE ---
Pt ambulatory to RM 2 from . A&Ox3 skin pwd, respirations even unlabored. Tachycardic on monitor, endorsing N/V/D and diffuse abd pain x 4 days. Productive cough and SOB, intermittent hot flashes and chills. IV access obtained. Labs drawn in , awaiting primary provider eval, aware of plan of care.
[2024-04-16 21:45] VITALS: PULSE 93; RESP 20; O2SAT 98
--- NOTE | 2024-04-16 21:46 | ED.NAVMDI ---
HPI - Nausea/Vomiting/Diarrhea General Chief complaint: Nausea/Vomiting/Diarrhea Stated complaint: vomiting Time Seen by Provider: 04/16/24 21:37 Related Data Previous Rx's ?Medication ?Instructions ?Recorded ondansetron 4 mg disintegrating 4 mg PO Q8H PRN nausea and 04/04/23 tablet vomiting #20 tabs epinephrine 0.3 mg/0.3 mL 0.3 mg (0.3 mL) IM Q15M PRN 04/05/24 injection, auto-injector (EpiPen anaphylaxis #2 ea 2-Tony) prednisone 50 mg tablet 50 mg PO DAILY 4 days #4 tabs 04/05/24 Allergies Allergy/AdvReac Type Severity Reaction Status Date / Time peanut [Peanut] Allergy Severe ANAPHYLAXIS Verified 04/16/24 15:06 Iodinated Contrast Media Allergy Hives Verified 04/16/24 15:06 [Contrast Dye] peanuts Allergy Unknown Anaphylaxis Uncoded 04/04/24 20:51 PMFSH Social History Social History Unable to assess alcohol history related to: Unknown Smoked in Last 30 Days: Yes Use of substances other than those prescribed or required for medical reasons: Yes Substance Use Type: Marijuana Substance Use Frequency: Chronic Longstanding Any prior treatment program specific to substance use: No Advance Directives: No Advance Directives Information Provided: No Physical Exam Vital Signs: Vital Signs: Last Vital Signs Temp 98.0 F 04/16/24 22:17 Pulse 107 H 04/16/24 22:17 Resp 18 04/16/24 22:17 BP 128/73 04/16/24 22:17 Pulse Ox 96 04/16/24 22:17 O2 Del Method Room Air 04/16/24 22:17 BMI result Body Mass Index 44.9 Medications Administered Discontinued Medications Generic Name Dose Route Start Last Admin Trade Name Freq PRN Reason Stop Dose Admin Sodium Chloride 1,000 mls @ 999 mls/hr 04/16/24 22:00 04/16/24 23:30 Ns IVCONT 04/16/24 23:00 Infused .Q1H1M ONE Infusion Loperamide HCl 4 mg 04/16/24 22:00 04/16/24 22:21 Loperamide Hcl 2 Mg Capsule PO 04/16/24 22:01 4 mg ONCE ONE Administration Ondansetron HCl 4 mg 04/16/24 22:00 04/16/24 22:21 Ondansetron Hcl 4 Mg/2 Ml Vial IVPUSH 04/16/24 22:01 4 mg ONCE ONE Administration Medical Decision Making Lab Data 04/16/24 15:50 04/16/24 15:50 Labs: Lab Results 04/16/24 04/16/24 Range/Units 15:50 20:42 WBC 25.3 H (4.8-10.8) X10*3/uL RBC 6.00 H (4.60-5.80) X10*6/uL Hgb 18.8 H (14.0-18.0) g/dl Hct 54.1 H (42.0-52.0) % MCV 90.2 (80.0-98.0) fL MCH 31.3 (27.0-33.0) pg MCHC 34.8 (31.0-36.0) g/dl RDW 12.9 (11.0-16.0) % Plt Count 257 (160-400) X10*3/uL MPV 11.3 (9.4-12.4) fL Immature Gran % (Auto) 0.9 H (0.0-0.4) % Neut % (Auto) 84.2 H (45-73) % Lymph % (Auto) 9.4 L (20-40) % [place] % (Auto) 4.8 (2-11) % Eos % (Auto) 0.4 (0-4) % Baso % (Auto) 0.3 (0-2) % Lymph # (Auto) 2.4 (1.2-4.9) X10*3/uL [place] # (Auto) 1.2 (0.1-1.2) X10*3/uL Eos # (Auto) 0.1 (0.0-0.4) X10*3/uL Baso # (Auto) 0.1 (0.0-0.2) X10*3/uL Abs Immat Gran (auto) 0.24 H (0.00-0.03) X10*3/uL Absolute Neuts (auto) 21.3 H (2.0-8.3) x10*3/uL Absolute Nucleated RBC 0.000 (0.0-0.012) X10*3/uL Nucleated RBC % (auto) 0.0 (0.0-0.2) /100WBC Smear Tech's Comments VERIFIED PT 10.8 L (10.9-12.4) SEC INR 0.9 (0.9-1.1) APTT 28.6 (26.0-36.8) SEC Sodium 139 (135-145) mmol/L Potassium 4.9 (3.3-5.1) mmol/L Chloride 107 (96-108) mmol/L Carbon Dioxide 21 L (22-29) mmol/L Anion Gap 16 (12-20) BUN 13 (9-16) mg/dL Creatinine 0.78 (0.5-1.4) mg/dL Estim Creat Clear Calc 168.2 Estimated GFR > 60 Random Glucose 106 (60-115) mg/dL Calcium 9.6 (8.4-10.2) mg/dL Total Bilirubin 0.7 (0.0-1.0) mg/dL AST 43 H (5-37) U/L ALT 49 H (0-40) U/L Alkaline Phosphatase 83 (39-117) U/L Total Protein 7.6 (6.5-8.0) g/dL Albumin 4.2 (3.5-5.0) g/dL Lipase 15 (8-78) U/L Urine Color Dark Yellow Urine Appearance Clear Urine pH 5.5 (5.0-9.0) Ur Specific [place] >= 1.030 H (1.005-1.025) Urine Protein Trace (Neg-Trace) mg/dL Urine Glucose (UA) Negative (Negative) mg/dL Urine Ketones Trace (Negative) mg/dL Urine Blood Negative (Negative) Urine Nitrite Negative (Negative) Ur Leukocyte Esterase Negative (Negative) Urine Opiates Screen POSITIVE H (Not Detect) Ur Buprenorphine Scrn Not Detected (Not Detect) ng/mL Ur Oxycodone Screen Positive H (Not Detect) ng/mL Urine Methadone Screen Not Detected (Not Detect) ng/mL Urine Fentanyl Screen Not Detected (Not Detect) Ur Barbiturates Screen Not Detected (Not Detect) Ur Phencyclidine Scrn Not Detected (Not Detect) Ur Amphetamines Screen Not Detected (Not Detect) U Benzodiazepines Scrn Not Detected (Not Detect) Urine Cocaine Screen Not Detected (Not Detect) U Marijuana (THC) Screen POSITIVE H (Not Detect) Influenza Type A (PCR) NEGATIVE (Negative) Influenza Type B (PCR) NEGATIVE (Negative) RSV RNA Qual (PCR) NEGATIVE (Negative) SARS-CoV-2 RNA (RT-PCR) NEGATIVE (Negative) Discharge Plan Discharge Prescriptions: No Action ondansetron 4 mg tablet,disintegrating 4 mg PO Q8H PRN (Reason: nausea and vomiting) Qty: 20 0RF prednisone 50 mg tablet 50 mg PO DAILY 4 Days Qty: 4 0RF epinephrine [EpiPen 2-Tony] 0.3 mg/0.3 mL auto-injector 0.3 mg IM Q15M PRN (Reason: anaphylaxis) Qty: 2 0RF Rx Instructions: not to exceed 6 doses per episode Print Language: [place]i
--- NOTE | 2024-04-16 21:56 | PC.NURSE ---
Pt ambulatory to CT.
[2024-04-16 22:17] VITALS: BP 128/73; PULSE 107; RESP 18; TEMP 36.7; O2SAT 96
[2024-04-16] MEDS: Loperamide HCl 2 MG CAPSULE 4 MG PO (22:21)
[2024-04-16] MEDS: 0.9 % Sodium Chloride 1,000 ML 999 ML IVCONT (22:21)
[2024-04-16] MEDS: ondansetron HCL 4 MG/2 ML VIAL IVPUSH (22:21)
--- NOTE | 2024-04-16 22:23 | PC.NURSE ---
Pt medicated per aug, awaiting ct results and improvement in symptoms.
[2024-04-16 22:26] LABS: Amphetamine Screen Urine Not Detected (Not Detect); Barbiturates, Urine Not Detected (Not Detect); Benzodiazepines Screen Urine Not Detected (Not Detect); Buprenorphine Scr Not Detected (Not Detect); Cannabinoid Screen Urine POSITIVE (Not Detect); Cocaine Screen Urine Not Detected (Not Detect); Fentanyl, urine Not Detected (Not Detect); Methadone Screen, Urine Not Detected (Not Detect); Opiate Screen Urine POSITIVE (Not Detect); Oxycodone Screen Urine Positive (Not Detect); Phencyclidine Screen Urine Not Detected (Not Detect)
[2024-04-17 01:02] VITALS: BP 138/77; PULSE 92; RESP 16; TEMP 37.1; O2SAT 98
[2024-04-17 01:23] VITALS: BP 138/77; PULSE 92; RESP 16; TEMP 37.1; O2SAT 98
== END 2024-04-17 01:23 | disposition home or self-care (01) ==
PROVIDERS: Physician Assistant; Emergency Provider Emergency Medicine
DX: K52.9 Noninfective gastroenteritis and colitis, unspecified (principal); R11.2 Nausea with vomiting, unspecified; R10.9 Unspecified abdominal pain; Z79.899 Other long term (current) drug therapy; Z03.818 Encounter for observation for suspected exposure to other biological agents ruled out
CPT/HCPCS: 0241U; 36415; 74176; 80053; 80307; 81003; 83690; 85025; 85610; 85730; 96361; 96374; 99284; 99285; J2405

== ENCOUNTER 2024-04-21 19:11 | Emergency (ER) | payer OTHER, SELFPAY ==
[2024-04-21 19:29] VITALS: BP 149/95; PULSE 96; RESP 18; TEMP 36.2; O2SAT 97; BMI 44.8
[2024-04-21] MEDS: Acetaminophen 325 MG TABLET 975 MG PO (22:01)
--- NOTE | 2024-04-21 22:17 | ED_ITS ---
HPI - Dental/Oral General Chief complaint: Dental/Oral Stated complaint: Tooth pain Time Seen by Provider: 04/21/24 21:52 Source: patient Mode of arrival: ambulatory Limitations: no limitations History of Present Illness ED Provider: kenia PRABHAKAR Narrative: Patient with diffuse caries complaining of increased pain in left lower molar area with swelling has not seen a dentist for a while Related Data Previous Rx's ?Medication ?Instructions ?Recorded ondansetron 4 mg disintegrating 4 mg PO Q8H PRN nausea and 04/04/23 tablet vomiting #20 tabs epinephrine 0.3 mg/0.3 mL 0.3 mg (0.3 mL) IM Q15M PRN 04/05/24 injection, auto-injector (EpiPen anaphylaxis #2 ea 2-Tony) prednisone 50 mg tablet 50 mg PO DAILY 4 days #4 tabs 04/05/24 hyoscyamine sulfate 0.125 mg tablet 0.125 mg PO QID PRN dyspepsia #10 04/17/24 tabs loperamide 2 mg tablet 2 mg PO Q4H PRN loose stool #14 04/17/24 tabs ondansetron 4 mg disintegrating 4 mg PO Q6H PRN nausea and 04/17/24 tablet vomiting #14 tabs amoxicillin 875 mg-potassium 1 tab PO BID #20 tabs 04/21/24 clavulanate 125 mg tablet oxycodone 5 mg tablet 5 mg PO Q6H PRN pain #20 tabs 04/21/24 Allergies Allergy/AdvReac Type Severity Reaction Status Date / Time peanut [Peanut] Allergy Severe ANAPHYLAXIS Verified 04/21/24 19:31 Iodinated Contrast Media Allergy Hives Verified 04/21/24 19:31 [Contrast Dye] peanuts Allergy Unknown Anaphylaxis Uncoded 04/21/24 19:31 Review of Systems 2 Review of Systems: Yes all other systems are reviewed and are negative PMFSH Social History Social History Unable to assess alcohol history related to: Unknown Substance Use Type: Marijuana Advance Directives: No Advance Directives Information Provided: Yes Do you have a plan to hurt others: No Plan Physical Exam 2 Vital Signs: Vital Signs: Last Vital Signs Temp 98.5 F 04/21/24 22:35 Pulse 76 04/21/24 22:35 Resp 20 04/21/24 22:35 BP 145/93 H 04/21/24 22:35 Pulse Ox 98 04/21/24 22:35 O2 Del Method Room Air 04/21/24 22:35 BMI result Body Mass Index 44.8 HEENT: Teeth image: 1. Broken teeth with swelling around it no fluctuance Medications Administered Discontinued Medications Generic Name Dose Route Start Last Admin Trade Name Freq PRN Reason Stop Dose Admin Acetaminophen 975 mg 04/21/24 21:57 04/21/24 22:01 Acetaminophen 325 Mg Tablet PO 04/21/24 21:58 975 mg ONCE ONE Administration Amoxicillin/Clavulanate Potassium 875 mg 04/21/24 22:17 04/21/24 22:25 Amoxicillin/Potassium Clav 875 Mg Tablet PO 04/21/24 22:18 875 mg ONCE ONE Administration Oxycodone HCl 10 mg 04/21/24 22:17 04/21/24 22:26 Oxycodone Hcl Immed Release 5 Mg Tablet PO 04/21/24 22:18 10 mg ONCE ONE Administration Discharge Plan Discharge Clinical Impression: Dental caries Patient Disposition: Home, Self-Care Instructions: Toothache (ED) Additional Instructions: Take pain medication and antibiotic as prescribed Follow up with your dentist Prescriptions: New amoxicillin-pot clavulanate 875-125 mg tablet 1 tab PO BID Qty: 20 0RF oxycodone 5 mg tablet 5 mg PO Q6H PRN (Reason: pain) Qty: 20 0RF Rx Instructions: Partial Fill upon patient request. No Action ondansetron 4 mg tablet,disintegrating 4 mg PO Q8H PRN (Reason: nausea and vomiting) Qty: 20 0RF prednisone 50 mg tablet 50 mg PO DAILY 4 Days Qty: 4 0RF epinephrine [EpiPen 2-Tony] 0.3 mg/0.3 mL auto-injector 0.3 mg IM Q15M PRN (Reason: anaphylaxis) Qty: 2 0RF Rx Instructions: not to exceed 6 doses per episode ondansetron 4 mg tablet,disintegrating 4 mg PO Q6H PRN (Reason: nausea and vomiting) Qty: 14 0RF loperamide 2 mg tablet 2 mg PO Q4H PRN (Reason: loose stool) Qty: 14 0RF Rx Instructions: administer after each loose stool until symptoms controlled; do not exceed 8 mg per 24 hrs hyoscyamine sulfate 0.125 mg tablet 0.125 mg PO QID PRN (Reason: dyspepsia) Qty: 10 0RF Interventions: ED Discharge Assessment Last Done: 04/21/24 22:35 Discharge Date/Time: 04/21/24 22:38 Print Language: Cymraes
[2024-04-21] MEDS: Amoxicillin/Potassium Clav 875 MG TABLET PO (22:25)
[2024-04-21 22:26] VITALS: BP 145/93; PULSE 76; RESP 20; TEMP 36.9; O2SAT 98
[2024-04-21] MEDS: oxyCODONE HCl Immed Release 5 MG TABLET 10 MG PO (22:26)
[2024-04-21 22:35] VITALS: BP 145/93; PULSE 76; RESP 20; TEMP 36.9; O2SAT 98
== END 2024-04-21 22:38 | disposition home or self-care (01) ==
PROVIDERS: Emergency Provider Internal Medicine
DX: K02.9 Dental caries, unspecified (principal); K08.89 Other specified disorders of teeth and supporting structures; Z79.899 Other long term (current) drug therapy
CPT/HCPCS: 99283; 99284

== ENCOUNTER 2024-10-26 20:10 | Emergency (ER) | payer OTHER, SELFPAY ==
--- NOTE | ~2024-10-26 | XR_ITS ---
CLINICAL HISTORY: fall Left clavicle two views Comparison: None Findings: No acute fracture or dislocation identified. No acute focal bony abnormality. No radiopaque foreign body noted. Impression: No acute bony abnormality This document has been electronically signed by: Fernando Maciel MD on 10/26/2024 21:20:18
--- NOTE | ~2024-10-26 | XR_ITS ---
CLINICAL HISTORY: fall Right wrist three views Comparison: None Findings: No acute fracture or dislocation identified. No acute focal bony abnormality. No radiopaque foreign body noted. Impression: No acute bony abnormality This document has been electronically signed by: Fernando Maciel MD on 10/26/2024 21:19:50
--- NOTE | ~2024-10-26 | XR_ITS ---
CLINICAL HISTORY: fall Left shoulder three views Comparison: None Findings: No acute fracture or dislocation identified. No acute focal bony abnormality. No radiopaque foreign body noted. Impression: No acute bony abnormality This document has been electronically signed by: Fernando Maciel MD on 10/26/2024 21:19:39
--- NOTE | ~2024-10-26 | CT_ITS ---
CLINICAL HISTORY: fall +HS CT head without contrast Comparison: None Findings: No intracranial mass, midline shift, hydrocephalus, or acute hemorrhage. No acute process in sinuses or mastoids. No acute bony abnormality. Impression: No acute intracranial process This document has been electronically signed by: Fernando Maciel MD on 10/26/2024 21:17:48
--- NOTE | ~2024-10-26 | XR_ITS ---
CLINICAL HISTORY: fall Left elbow three views Comparison: None Findings: Nondisplaced radial neck fracture noted. No other acute bony abnormality identified. No joint effusion is noted. Impression: Nondisplaced radial neck fracture This document has been electronically signed by: Fernando Maciel MD on 10/26/2024 21:20:47
--- NOTE | ~2024-10-26 | CT_ITS ---
CLINICAL HISTORY: chin pain s p fall w HS CT maxillofacial without contrast Comparison: None Findings: No acute fracture or dislocation identified. Paranasal sinuses and mastoid air cells clear. Mandible and TMJs are unremarkable. Numerous dental caries noted. Soft tissues unremarkable. No foreign body. Ocular globes symmetric and unremarkable. Impression: No acute bony abnormality. This document has been electronically signed by: Fernando Maciel MD on 10/26/2024 21:17:57
--- NOTE | ~2024-10-26 | XR_ITS ---
CLINICAL HISTORY: fall Left wrist four views Comparison: None Findings: No acute fracture or dislocation identified. No acute focal bony abnormality. No radiopaque foreign body noted. Impression: No acute bony abnormality This document has been electronically signed by: Fernando Maciel MD on 10/26/2024 21:18:10
--- NOTE | ~2024-10-26 | XR_ITS ---
CLINICAL HISTORY: fall Left forearm two views Comparison: None Findings: Question nondisplaced radial neck fracture. No radiopaque foreign body noted. Impression: Question nondisplaced radial neck fracture This document has been electronically signed by: Fernando Maciel MD on 10/26/2024 21:20:15
[2024-10-26 20:27] VITALS: BP 161/84; PULSE 105; RESP 18; TEMP 36.6; O2SAT 97; BMI 41.6
--- NOTE | 2024-10-26 20:28 | ED_ITS ---
HPI - Extremity Injury (Upper) General Chief Complaint: Fall Stated Complaint: L arm injury, Work related Time Seen by Provider: 10/26/24 23:59 Source: patient, RN notes reviewed and old records reviewed Mode of arrival: ambulatory Limitations: no limitations History of Present Illness ED Provider: Allan HPI narrative: 29-year-old male who denies any past medical history presents for evaluation of a fall. Patient reports that he fell off a loading dock at work onto pavement. He reports he was 4 or 5 ft in the air. He fell and injured his left arm, right wrist and his chin He does endorse hitting his head but denies any loss of consciousness. Denies any nausea, vomiting, lightheadedness. Most of his pain is in his left elbow/forearm which he rates as 10/10 He has a small abrasion to his left knee but denies pain to the knee He denies any chest pain or abdominal pain Related Data Previous Rx's ?Medication ?Instructions ?Recorded ondansetron 4 mg disintegrating 4 mg PO Q8H PRN nausea and 04/04/23 tablet vomiting #20 tabs epinephrine 0.3 mg/0.3 mL 0.3 mg (0.3 mL) IM Q15M PRN 04/05/24 injection, auto-injector (EpiPen anaphylaxis #2 ea 2-Tony) prednisone 50 mg tablet 50 mg PO DAILY 4 days #4 tabs 04/05/24 hyoscyamine sulfate 0.125 mg tablet 0.125 mg PO QID PRN dyspepsia #10 04/17/24 tabs loperamide 2 mg tablet 2 mg PO Q4H PRN loose stool #14 04/17/24 tabs ondansetron 4 mg disintegrating 4 mg PO Q6H PRN nausea and 04/17/24 tablet vomiting #14 tabs amoxicillin 875 mg-potassium 1 tab PO BID #20 tabs 04/21/24 clavulanate 125 mg tablet oxycodone-acetaminophen 5 mg-325 1 tab PO Q6H PRN pain #12 tabs 04/22/24 mg tablet (Percocet) oxycodone 5 mg tablet 5 mg PO Q6H PRN severe pain (scale 10/27/24 score 7-10) #16 tabs Allergies Allergy/AdvReac Type Severity Reaction Status Date / Time peanut [Peanut] Allergy Severe ANAPHYLAXIS Verified 10/26/24 20:30 Iodinated Contrast Media Allergy Hives Verified 10/26/24 20:30 [Contrast Dye] peanuts Allergy Unknown Anaphylaxis Uncoded 04/21/24 19:31 Review of Systems Constitutional: Constitutional: Denies body ache(s), Denies chills and Denies headache(s) Eyes: Eyes: Denies blurry vision and Denies floaters ENT: Denies vertigo, Denies dizziness and Denies headache(s) Cardiovascular: Cardiovascular: Denies syncope and Denies dyspnea Respiratory: Respiratory: Denies chest congestion and Denies dyspnea Gastrointestinal: Gastrointestinal: Denies abdominal pain Musculoskeletal: Musculoskeletal: Reports arthralgias, Reports joint swelling and Reports limited range of motion Integumentary/Breasts: Skin/Breast: Reports wounds Neurologic: Denies vertigo, Denies dizziness, Denies syncope and Denies headache(s) [facility] Social History Social History Unable to assess alcohol history related to: Unknown Substance Use Type: Marijuana Advance Directives: No Advance Directives Information Provided: Yes Do you have a plan to hurt others: No Plan Physical Exam Vital Signs: Vital Signs: Last Vital Signs Temp 98.1 F 10/27/24 00:35 Pulse 84 10/27/24 00:35 Resp 16 10/27/24 00:35 BP 134/85 10/27/24 00:35 Pulse Ox 96 10/27/24 00:35 O2 Del Method Room Air 10/27/24 00:35 BMI result Body Mass Index 41.6 Const: General: healthy appearing, comfortable, no acute distress, alert and awake Nutritional Appearance: well nourished Orientation/consciousness: patient oriented x3 HEENT: Head: Yes normocephalic and Yes atraumatic Eyes: Eyelids: Yes eyelids normal Conjunctivae: conjunctivae normal Sclerae: sclerae normal Corneas: corneas normal Pupils: Equal, round and reactive pupils present EOM: EOMs intact bilaterally Neck: Neck: Yes full ROM Resp: Effort & Inspection: normal respiratory effort, able to speak in complete sentences and not labored GI: Inspection: No distended Palpation (GI): Soft to palpation, not firm, nontender, no guarding and not rigid Skin: General skin exam: elasticity normal Neuro: General: patient oriented x3 Cranial nerves: Yes Equal, round and reactive pupils present and Yes Bilaterally intact EOM present Cognition (Neuro): normal cognition Extrem: Other: Diffuse tenderness to the left elbow with some ecchymosis and edema. There are no open wounds or rashes. There is minimal left wrist tenderness. There is reduced range of motion of the left elbow. No deformity to the left shoulder. No tenderness to the left shoulder or clavicle. There was mild edema to the right wrist with some tenderness. No deformity noted. Course Course Course Narrative: This is a Rapid Medical Exam performed in triage by Cheli Larkin PA-C. Full HPI, ROS and PE to be performed by primary ED provider. 29-year-old male presenting to the ED c/o L shoulder pain s/p falling off loading dock [4-5ft] at work onto pavement around 1500 today. Denies LOC, but states didnt know what happened Denies AC use. admits to hitting chin and LUE. Also reports right wrist pain PE: Diffusely tender to palpation to LUE, R wrist & chin. Ambulating with slow steady gait. Plan: Head/facial CT, x-rays Medical Decision Making Medical Decision Making MDM Narrative: 29-year-old male presents for evaluation after a fall. He injured his left arm right wrist and face. He had a CT scan of the head and face which shows no acute traumatic injuries. X-rays of the left clavicle, left wrist, left shoulder are negative. He does have a nondisplaced radial neck fracture of the left. Right wrist x-ray also negative. The patient has no chest pain, abdominal pain, back pain. No bruising or wounds noted to the area. I do not feel that he needs CT scan of the chest or abdomen at this time. The patient came in with a sling that he had from home. This was adjusted to fit appropriately. Differential Diagnosis Differential Diagnoses: The differential diagnosis associated with the presentation includes Elbow fracture Wrist fracture Wrist sprain Elbow sprain Contusion Intracranial hemorrhage Facial fracture Independent Interpretation I performed an independent interpretation of an: Plain X-Ray Interpretation: Agree with Radiology interpretation, radial neck fracture on left Radiology Impression Discussion of test interpretation with radiology: I have reviewed the radiologist's reading. Radiologist Impression: Findings: Nondisplaced radial neck fracture noted. No other acute bony abnormality identified. No joint effusion is noted. Impression: Nondisplaced radial neck fracture This document has been electronically signed by: Fernando Maciel MD on 10/26/2024 21:20:47 Findings: No intracranial mass, midline shift, hydrocephalus, or acute hemorrhage. No acute process in sinuses or mastoids. No acute bony abnormality. Impression: No acute intracranial process This document has been electronically signed by: Fernando Maciel MD on 10/26/2024 21:17:48 Findings: No acute fracture or dislocation identified. Paranasal sinuses and mastoid air cells clear. Mandible and TMJs are unremarkable. Numerous dental caries noted. Soft tissues unremarkable. No foreign body. Ocular globes symmetric and unremarkable. Impression: No acute bony abnormality. This document has been electronically signed by: Fernando Maciel MD on 10/26/2024 21:17:57 Discharge Plan Discharge Clinical Impression: Closed fracture of left elbow Patient Disposition: Home, Self-Care Instructions: Elbow Fracture (ED), How to Use a Sling (ED) Additional Instructions: The x-ray of your left elbow showed a nondisplaced radial neck fracture. This type of fracture is generally treated with a sling Use ibuprofen/Tylenol for pain You may use oxycodone for more severe, breakthrough pain This may make you drowsy, do not drink alcohol or drive after taking it Follow-up with orthopedics at the number provided Prescriptions: New oxycodone 5 mg tablet 5 mg PO Q6H PRN (Reason: severe pain (scale score 7-10)) Qty: 16 0RF Rx Instructions: Partial Fill upon patient request. No Action ondansetron 4 mg tablet,disintegrating 4 mg PO Q8H PRN (Reason: nausea and vomiting) Qty: 20 0RF amoxicillin-pot clavulanate 875-125 mg tablet 1 tab PO BID Qty: 20 0RF oxycodone-acetaminophen [Percocet] 5-325 mg tablet 1 tab PO Q6H PRN (Reason: pain) Qty: 12 0RF Rx Instructions: Partial Fill upon patient request. prednisone 50 mg tablet 50 mg PO DAILY 4 Days Qty: 4 0RF epinephrine [EpiPen 2-Tony] 0.3 mg/0.3 mL auto-injector 0.3 mg IM Q15M PRN (Reason: anaphylaxis) Qty: 2 0RF Rx Instructions: not to exceed 6 doses per episode ondansetron 4 mg tablet,disintegrating 4 mg PO Q6H PRN (Reason: nausea and vomiting) Qty: 14 0RF loperamide 2 mg tablet 2 mg PO Q4H PRN (Reason: loose stool) Qty: 14 0RF Rx Instructions: administer after each loose stool until symptoms controlled; do not exceed 8 mg per 24 hrs hyoscyamine sulfate 0.125 mg tablet 0.125 mg PO QID PRN (Reason: dyspepsia) Qty: 10 0RF Referrals: [facility] Orthopedic Surgeons [Provider Group] (left radial neck fracture) Interventions: ED Discharge Assessment Last Done: 10/27/24 00:47 Print Language: Citizen [place]
[2024-10-27 00:35] VITALS: BP 134/85; PULSE 84; RESP 16; TEMP 36.7; O2SAT 96
[2024-10-27] MEDS: oxyCODONE HCl Immed Release 5 MG TABLET PO (00:44)
[2024-10-27 00:47] VITALS: BP 134/85; PULSE 84; RESP 16; TEMP 36.7; O2SAT 96
== END 2024-10-27 01:02 | disposition home or self-care (01) ==
PROVIDERS: Emergency Provider Internal Medicine
DX: S52.135A Nondisplaced fracture of neck of left radius, initial encounter for closed fracture (principal); W17.89XA Other fall from one level to another, initial encounter; Y93.89 Activity, other specified; Y92.62 Dock or shipyard as the place of occurrence of the external cause; Y99.0 Civilian activity done for income or pay; R51.9 Headache, unspecified
CPT/HCPCS: 70450; 70486; 73000; 73030; 73080; 73090; 73110; 99284

== ENCOUNTER → 2024-10-26 20:29 | Outpatient (BNV) | payer OTHER, SELFPAY | PROVIDERS: Visit Provider Radiology Diagnostic Radiology | DX: S09.93XA Unspecified injury of face, initial encounter (principal); S09.90XA Unspecified injury of head, initial encounter; M25.512 Pain in left shoulder; M25.531 Pain in right wrist; M25.522 Pain in left elbow; M25.532 Pain in left wrist; M25.511 Pain in right shoulder; S52.135A Nondisplaced fracture of neck of left radius, initial encounter for closed fracture | CPT/HCPCS: 70450; 70486; 73000; 73030; 73080; 73090; 73110 ==

== ENCOUNTER 2024-11-06 08:36 | Outpatient (AMB) | payer OTHER, SELFPAY ==
--- NOTE | 2024-11-06 08:45 | MHC.OFFVIS ---
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 Patient reports that he fell off a loading dock at work onto the pavement. He reports he was 4 or 5 ft in the air, he fell and injured his left arm, right wrist and his chin. Seen in ED same day, he was told he has a left radial neck fracture. Currently states his pain is a 4/10, however his pain when he woke up this morning it was a 9/10. Patient mentions that he is not taking anything for pain at the moment. Allergies peanut [Peanut] Allergy (Severe, Verified 11/06/24 08:48) ANAPHYLAXIS Iodinated Contrast Media [Contrast Dye] Allergy (Verified 11/06/24 08:48) Hives peanuts Allergy (Unknown, Uncoded 04/21/24 19:31) Anaphylaxis [facility] Social History (Updated 11/06/24 @ 09:14 by Dinora Hernandez) Unable to assess alcohol history related to: Unknown Alcohol intake: current Alcohol intake frequency: holidays/special occasions only Patient Tobacco Use Status: Current everyday Tobacco user Cigarette Packs Per Day: 1 Substance Use Type: Marijuana Current occupational status: employed 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 This injury resulted from a fall off a boating dock, which led to a direct impact of his right elbow on the pavement. Imaging at the ED confirmed a nondisplaced fracture of the radial neck. The patient reports ongoing pain in the elbow, specifically when performing certain movements, such as pronation and supination. No symptoms of numbness or tingling were reported. The patient experiences additional discomfort in his back, assumed to be from sling usage. Pain management strategies are currently limited, with the patient not using any [id number] pain medication. He does not wear the sling consistently, reserving its use for times when he anticipates significant movement. Review of Systems - Musculoskeletal: Reports elbow pain; denies hand numbness or tingling. - Neurological: Denies numbness or tingling in the hand. Systems reviewed and are negative except as per HPI and below Physical Exam - Musculoskeletal- Examination of the left elbow reveals tenderness upon palpation over the radial head. patient is able to flex to approximately 130 degrees and extend to approximately 10 degrees with the left elbow pronation to approximately 60 degrees and supination to approximately 60 degrees discomfort at both extremes of range of motion no edema, erythema, ecchymosis noted of the left elbow no lacerations, abrasions, open areas Results - Imaging: X-rays from the emergency department reveal a nondisplaced radial neck fracture. Procedure Plan Management focuses on conservative treatment of the nondisplaced radial neck fracture. Utilize the sling for comfort, particularly in active environments, and begin gentle range of motion exercises to enhance elbow flexibility. Avoid lifting more than two pounds to prevent exacerbating the injury. While [id number] pain relief, such as acetaminophen or ibuprofen, was mentioned, it is not currently indicated. Advising smoking reduction could positively influence bone healing. The patient will return for reevaluation in two to three weeks, and a note for light duty work was provided, considering the current injury limitations. Patient was informed and verbally consented to the use of an ambient scribe for clinic note documentation during this visit. Discussion Notes I discussed with the patient the nature of his nondisplaced radial neck fracture and how it typically does not require surgical intervention. I emphasized avoiding high-stress activities for his right elbow and the importance of gentle movement to prevent stiffness. The risks and benefits of weaning off the sling and performing specific range of motion exercises were discussed. I recommended limiting weight-bearing activities with the injured arm to two pounds or less. We also talked about the potential impact of smoking on bone healing, and I encouraged the patient to reduce smoking. The patient was informed that occupational therapy might be introduced after reevaluation. A light-duty work note was given, and we agreed on a follow-up visit in two to three weeks. Patient Instructions - Wear the sling for comfort in busy or active environments. - Begin gentle range of motion exercises for the elbow, focusing on pronation, supination, flexion, and extension. - Avoid lifting more than two pounds with the affected arm. - Consider taking acetaminophen or ibuprofen if pain becomes bothersome. - Try to cut back on smoking to support bone healing. - Follow up in two to three weeks as scheduled. Orders: Orders XR elbow LT min 3V Today M25.522 - Pain in left elbow Coding Level of Care Code New Pt Level 3 (92340) Diagnoses Left radial head fracture S52.122A CPT Codes Fracture Care - Fracture Billing Code: Fracture Billing Code ([id number])
[2024-11-06 08:50] VITALS: BMI 41.6
--- OUTSIDE RECORDS SUMMARY | 2024-11-06 08:56 | XMS_ITS | Encounter Summary ---
Author Organization [facility] Address [address] [place] [address] Phone Care Team Providers Care Railroad Crossing Protection Maintainer Name Role Phone Reuben Long MD Primary Care Provider [phone] Encounter Details Date Type Department Care Team (Late st Contact Info) Description 04/28/2012 Documentation EM Family Medicine [address] [place] [address] Family Medicine, Physician [address] [place], [place] [phone] Social History Tobacco Use Types Packs/Day Years Used Date Smoking Tobacco: Never Assessed Sex and Gender Information Value Date Recorded Sex Assigned at Not on file Legal Sex Male 4:43 PM EDT Gender Identity Not on file Sexual Orientation Not on file documented as of this encounter Plan of Treatment Not on file documented as of this encounter Visit Diagnoses Not on filedocumented in this encounter Care Teams Railroad Crossing Protection Maintainer Relationship Specialty Start Date End Date Reuben Long MD [address] [facility] [place] [address] PCP - General 01/21/17 09/21/22 documented as of this encounter
== END 2024-11-06 09:07 | disposition home or self-care (01) ==
LOC: HO.HOS 08:37
DX: S52.122A Displaced fracture of head of left radius, initial encounter for closed fracture (principal)
CPT/HCPCS: 99203

== ENCOUNTER → 2024-11-06 08:38 | Outpatient (BNV) | payer OTHER, SELFPAY | PROVIDERS: Visit Provider Radiology Diagnostic Radiology | DX: M25.522 Pain in left elbow (principal) | CPT/HCPCS: 73080 ==

== ENCOUNTER 2024-11-06 09:00 | Outpatient (REF) | payer OTHER, SELFPAY ==
--- NOTE | ~2024-11-06 | XR_ITS ---
CLINICAL HISTORY: M25.522 - Pain in left elbow 3 views left elbow Comparison: 10/26/2024 Findings: No dislocations. No joint effusion. There is a healing nondisplaced fracture of the proximal radius with focal periosteal elevation. No radiopaque foreign body. Impression: Small focal periosteal elevation in the region of healing transverse fracture involving the proximal radius neck. Joint distances are normal. This document has been electronically signed by: Riki Cortes MD on 11/06/2024 15:22:54
--- OUTSIDE RECORDS SUMMARY | 2024-11-07 09:29 | XMS_ITS | Encounter Summary ---
Author Organization [facility] Address [address] [place] [address] Phone Care Team Providers Care Paint Spraying Machine Operator Helper Name Role Phone Reuben Long MD Primary Care Provider [phone] Encounter Details Date Type Department Care Team (Late st Contact Info) Description 08/16/2011 Documentation EM Family Medicine [address] [place] [address] Family Medicine, Physician [address] [place], [place] [phone] Social History Tobacco Use Types Packs/Day Years [...] on filedocumented in this encounter Care Teams Paint Spraying Machine Operator Helper Relationship Specialty Start Date End Date Reuben Long MD [address] [facility] [place] [address] PCP - General 01/21/17 09/21/22 documented as of this encounter
== END 2024-11-06 09:01 | disposition home or self-care (01) ==
LOC: HO.HOSX 09:00
DX: M25.522 Pain in left elbow (principal)
CPT/HCPCS: 73080

== ENCOUNTER 2024-11-23 08:29 | Outpatient (REF) | payer OTHER, SELFPAY ==
--- NOTE | ~2024-11-23 | XR_ITS ---
EXAMINATION: XR ELBOW 3 VIEWS LEFT HISTORY: M25.522 - Pain in left elbow COMPARISON: There is an is made with the prior examination dated 11/06/2024. FINDINGS: Three views of the left elbow are submitted. Osseous mineralization is normal. Again seen is a transverse fracture of the radial neck. The fracture line is better seen on today's examination. The joint spaces are preserved. The soft tissues are unremarkable. There is no joint effusion. XR/XR elbow LT min 3V IMPRESSION: Transverse fracture of the radial neck which is better seen on today's study. Electronically signed by: Nimesh Diane MD 11/23/2024 09:13 AM EDT
--- NOTE | ~2024-11-23 | XR_ITS ---
EXAMINATION: XR WRIST, RIGHT CLINICAL INFORMATION: M79.641 - Pain in right hand COMPARISON: 10/26/2024. TECHNIQUE: PA, lateral, and oblique views of the right wrist. FINDINGS: The bones and soft tissues are normal. No fracture. Alignment is anatomic with normal joint spaces. No erosions or abnormal soft tissue calcifications. XR/XR wrist RT w scaphoid IMPRESSION: Normal right wrist. Electronically signed by: Mahad Farfan MD 11/23/2024 09:27 AM EDT
--- OUTSIDE RECORDS SUMMARY | 2024-11-23 08:37 | XMS_ITS | Encounter Summary ---
Author Organization [facility] Address [address] [place] [address] Phone Care Team Providers Care Baseball Glove Stuffer Name Role Phone Reuben Long MD Primary Care Provider [phone] Encounter Details Date Type Department Care Team (Late st Contact Info) Description 08/16/2011 Documentation EM Family Medicine [address] [place] [address] Family Medicine, Physician [address] [place], [place] [phone] Social History Tobacco Use Types Packs/Day Years [...] on filedocumented in this encounter Care Teams Baseball Glove Stuffer Relationship Specialty Start Date End Date Reuben Long MD [address] [facility] [address] PCP - General 01/21/17 09/21/22 documented as of this encounter
== END 2024-11-23 08:30 | disposition home or self-care (01) ==
LOC: HO.HOSX 08:29
DX: M25.522 Pain in left elbow (principal); M79.641 Pain in right hand
CPT/HCPCS: 73080; 73110

== ENCOUNTER 2024-11-23 08:39 | Outpatient (AMB) | payer OTHER, SELFPAY ==
--- NOTE | 2024-11-23 08:56 | MHC.OFFVIS ---
Vital Signs 11/23/24 09:00 Height 5 ft 5 in Weight 250 lb BMI 41.6 Intake Visit Reasons: OV-radial head fracture-follow up Intake Note: Kiel is a 29 year old right hand dominant male who presents today for a follow up visit for his left radial head fracture s/p fall DOI: 10/26/24. Patient reports he continues to have some swelling at the wrist. He is taking Ibuprofen as needed with relief. Denies numbness, tingling, finger locking. Allergies peanut [Peanut] Allergy (Severe, Verified 11/23/24 08:59) ANAPHYLAXIS Iodinated Contrast Media [Contrast Dye] Allergy (Verified 11/23/24 08:59) Hives peanuts Allergy (Unknown, Uncoded 11/23/24 08:59) Anaphylaxis HPI HPI OV-radial head fracture-follow up: Details: Kiel is a 29 year old right hand dominant male who presents today for a follow up visit for his left radial head fracture s/p fall DOI: 10/26/24. Patient reports he continues to have some swelling at the wrist. He is taking Ibuprofen as needed with relief. Denies numbness, tingling, finger locking. The patient also reports significant pain in the right wrist, that has only improved minimally since date of injury. Denies numbness or tingling in the right hand. No other acute complaints concerns at this time. 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 patient is able to flex to approximately 130 degrees and extend to approximately 10 degrees with the left elbow pronation to approximately 60 degrees and supination to approximately 60 degrees discomfort at both extremes of range of motion no edema, erythema, ecchymosis noted of the left elbow no lacerations, abrasions, open areas -patient reports minimal tenderness to palpation of the scaphoid tubercle of the right wrist, no tenderness to palpation of the right anatomical snuffbox. Minimal discomfort with range of motion of the right hand. Results Reviewed Results Reviewed: X-rays obtained in the office today and independently reviewed by me, Coleman Friend PA-C, demonstrate nondisplaced fracture of the left radial neck with no fracture or acute bony abnormality noted on x-ray of the right wrist. Assessment & Plan Assessment & Plan (1) Left radial head fracture: Code(s): S52.122A - Displaced fracture of head of left radius, initial encounter for closed fracture Category: Medical (2) Tenderness of anatomical snuffbox: Code(s): M79.643 - Pain in unspecified hand Category: Medical Plan 1. Left radial head fracture Date of injury 10/26/2024 Patient appears to be recovering well from this injury Patient is educated about the typical recovery course Should discontinue all sling use at this time Continue to work on range of motion of the left elbow 2 lb weight limit and left hand Avoid hyper pronation and supination Patient is amenable to this plan 2. Anatomical snuffbox and scaphoid tubercle tenderness of right wrist Date of injury 10/26/2024 Patient is given a Velcro wrist splint to be worn throughout the day Can remove to bathe and sleep Follow-up in 2 weeks, if still experiencing pain we will consider ordering MRI at that time Orders: Orders XR wrist RT w scaphoid Today M79.641 - Pain in right hand XR elbow LT min 3V Today M25.522 - Pain in left elbow Coding Level of Care Code Global (45624) Diagnoses Left radial head fracture S52.122A Tenderness of anatomical snuffbox M79.643
[2024-11-23 09:00] VITALS: BMI 41.6
== END 2024-11-23 09:31 | disposition home or self-care (01) ==
LOC: HO.HOS 08:40
DX: S52.122A Displaced fracture of head of left radius, initial encounter for closed fracture (principal); M79.643 Pain in unspecified hand
CPT/HCPCS: 99213

== ENCOUNTER → 2024-11-23 08:41 | Outpatient (BNV) | payer OTHER, SELFPAY | PROVIDERS: Visit Provider Radiology Diagnostic Radiology | DX: S52.132A Displaced fracture of neck of left radius, initial encounter for closed fracture (principal); M79.641 Pain in right hand | CPT/HCPCS: 73110 ==

== ENCOUNTER 2024-12-06 13:12 | Outpatient (REF) | payer OTHER, SELFPAY ==
--- OUTSIDE RECORDS SUMMARY | 2024-12-06 15:51 | XMS_ITS | Encounter Summary ---
Author Organization [facility] Address [address] [place] [address] Phone Care Team Providers Care Flexible Machining System Machinist Name Role Phone Reuben Long MD Primary Care Provider [phone] Encounter Details Date Type Department Care Team (Late st Contact Info) Description 08/16/2011 Documentation EM Family Medicine [address] [place] [address] Family Medicine, Physician [address] [place], [place] [phone] Social History Tobacco Use Types Packs/Day Years [...] on filedocumented in this encounter Care Teams Flexible Machining System Machinist Relationship Specialty Start Date End Date Reuben Long MD [address] [facility] [place] [address] PCP - General 01/21/17 09/21/22 documented as of this encounter
== END 2024-12-06 13:13 | disposition home or self-care (01) ==
LOC: HO.HOSX 13:12
DX: Z13.89 Encounter for screening for other disorder (principal)

== ENCOUNTER 2024-12-21 08:41 | Outpatient (REF) | payer OTHER, SELFPAY ==
--- NOTE | ~2024-12-21 | XR_ITS ---
EXAMINATION: XR ELBOW, LEFT CLINICAL INFORMATION: M25.522 - Pain in left elbow COMPARISON: November 23, 2024 demonstrated a radial neck fracture. TECHNIQUE: AP, lateral, and oblique views of the left elbow. FINDINGS: Minimal callus formation along the radial neck fracture. Distal humerus and the proximal ulna are intact. XR/XR elbow LT min 3V IMPRESSION: Minimal callus formation/healing, radial neck fracture. Electronically signed by: Noah Alanis MD 12/21/2024 09:32 AM EDT
--- OUTSIDE RECORDS SUMMARY | 2024-12-21 08:47 | XMS_ITS | Patient Health Record ---
Author Organization [facility] Address [address] [place] [address] Care Team Providers Care Medicine And Health Service Manager Name Role Phone Heydi Castillo Primary Care Provider UnavailBipin Parrish Jr Unavailable Allergies Allergen (clinical drug ingredient) Drug/Non Drug Allergy documented on EMR Reaction Allergy Type Onset Date Status all nuts (uncoded) Unknown Allergy A ctive Reason For Referral No Information Medications Medication SIG (Take, Route, Frequency, Duration) Notes Start Date End Date Status ProAir HFA 108 (90 Base) MCG/ACT USE 1-2 PUFFS EVERY 4 HOURS NEEDED Inhalation for 25 Not-Taking Qvar 40 MCG/ACT inhale 1 puff by beth th twice a day Inhalation for 60 Active Anusol-HC 25 MG 1 suppository Rectal Once a day for 14 day(s) 11/28/2014 Active Proventil HFA 108 (90 Base) MCG/ACT inject 0.5 milliliter intramuscularly Inhalation for 16 Active Albuterol Active Problems Problem Type SNOMED Code ICD Code Onset Dates Problem Status W/U Status Risk Notes Problem [id number] Rectal bleeding (569.3) Active confirmed Plan Of Treatment No Information Insurance Providers Payer Name Payer Address Payer Phone Subscriber Number Group Number Insured Name Patient Relationship to Insured Coverage Start Date Coverage End Date [facility] [address] [place] [phone] [id number] NORA MEJIA Self - patient is the insured Medical (General) History Medical History History ICD Code Denies [place],DM,CVA,renal disease asthma Surgical History Surgery Date(Month/Year) lip surgery
--- OUTSIDE RECORDS SUMMARY | 2024-12-21 08:47 | XMS_ITS | Clinical Summary ---
Author Organization [employer] Address [address] [place] [address] [address] [place] [address] Care Team Providers Care Tipple Greaser Name Role Phone Unavailable Primary Care Provider Unavailabl e Allergies No known active allergies Medications No known medications Active Problems Problem Noted Date Diagnosed Date Rampant dental caries 02/17/2023 Dental abscess 02/17/2023 Social History Tobacco Use Types Packs/Day Years Used Date Smoking Tobacco: Former Cigarettes 0.3 0.5 Passive Smoke Exposure: Never Smokeless Tobacco: Former Tobacco Cessation:Counseling Given: No Alcohol Use Standard Drinks/Week Comments Defer 0 (1 standard drink = 0.6 oz pur e alcohol) Sex and Gender Information Value Date Recorded Sex Assigned at Male 04/12/2022 10:30 AM EDT Legal Sex Male 10:30 AM EDT Gender Identity Male 02/17/2023 9:11 AM EDT Sexual Orientation Straight 02/17/2023 9: 11 AM EDT Plan of Treatment Health Maintenance Due Date Last Done Comments Dental Prophylaxis 1993 Depression Screening 1993 HIV Screening 1993 SDOH Screening 1993 Disability Screening 1993 Alcohol/Substance Use Screening 2005 Family Planning (PISQ) 2008 Hepatitis C Screening 2011 Dental Oral Exam 11/18/2016 05/19/2016 Dental X-Ray: Bitewings 02/02/2018 02/01/2017, 05/19 COVID-19 Vaccine ( season) 2024 Tobacco Screening 02/18/2024 02/17/2023 Influenza Vaccine (#1) 2025 03/09/2012, 2010 DTaP/Tdap/Td Vaccines (8 - Td or Tdap) 07/05/2025 07/05/2015, 12/07/2005, 07/13/1998, Additional history exists Dental X-Ray: Full Mouth 02/18/2026 02/17/2023, 12/0 12/2015 Zoster Vaccines (1 of 2) 2043 RSV Patients and Patients Aged 60 years or older (1 - 1-dose 75+ series) 2068 Hepatitis B Vaccines Completed 1993, 1993, 1993 HIB Vaccines Completed 08/10/1994, 10/13, 1993, Additional history exists IPV Vaccines Completed 07/13/1998, 10/13, 1993, Additional history exists Meningococcal Vaccine Aged Out 12/07/2005 No nadia yessy eligible based on patient's age to complete this topic HPV Vaccines Aged Out No longer eligi ble based on patient's age to complete this topic Hepatitis A Vaccines Aged Out No long er eligible based on patient's age to complete this topic Meningococcal B Vaccine Aged Out No l onger eligible based on patient's age to complete this topic Pneumococcal Vaccine: Pediatrics (0 to 5 Years) and At-Risk Patients (6 to 49) Years Aged Out No longer eligible based on patient's age to complete this topic RSV under 20 months Aged Out No longe r eligible based on patient's age to complete this topic Rotavirus Vaccines Aged Out No longer eligible based on patient's age to complete this topic Procedures Procedure Name Priority Date/Time Associated Diagnosis Comments PANORAMIC RADIOGRAPHIC IMAGE Routine 02/17/2023 11:30 AM EDT BITEWING - SINGLE RADIOGRAPHIC IMAGE Routine 02/01/2017 12:00 AM EDT COMPREHENSIVE ORAL EVALUATION - NEW OR ESTABLISHED PATIENT Routine 05/19/2016 12:00 AM EST from Last 3 Months or Most Recently Relevant to Health Maintenance
--- OUTSIDE RECORDS SUMMARY | 2024-12-21 08:47 | XMS_ITS | Encounter Summary ---
Author Organization [facility] Address [address] [place] [address] Phone Care Team Providers Care Sports Activities Foul Judge Name Role Phone Reuben Long MD Primary Care Provider [phone] Encounter Details Date Type Department Care Team (Late st Contact Info) Description 08/16/2011 Documentation EM Family Medicine [address] [place] [address] Family Medicine, Physician [address] [place], [place] [phone] Social History Tobacco Use Types Packs/Day Years [...] on filedocumented in this encounter Care Teams Sports Activities Foul Judge Relationship Specialty Start Date End Date Reuben Long MD [address] [facility] [place] [address] PCP - General 01/21/17 09/21/22 documented as of this encounter
== END 2024-12-21 08:42 | disposition home or self-care (01) ==
LOC: HO.HOSX 08:41
DX: M25.522 Pain in left elbow (principal); S52.122A Displaced fracture of head of left radius, initial encounter for closed fracture; X58.XXXA Exposure to other specified factors, initial encounter; Y93.9 Activity, unspecified; Y92.9 Unspecified place or not applicable; Y99.9 Unspecified external cause status
CPT/HCPCS: 73080

== ENCOUNTER 2024-12-21 08:48 | Outpatient (AMB) | payer OTHER, SELFPAY ==
[2024-12-21 09:04] VITALS: BMI 41.6
--- NOTE | 2024-12-21 09:04 | MHC.OFFVIS ---
Vital Signs 12/21/24 09:04 Height 5 ft 5 in Weight 250 lb BMI 41.6 Intake Visit Reasons: OV-radial head fracture-four week follow up Intake Note: Kiel is a 29 year old right hand dominant male who presents today for a follow up visit for his left radial head fracture s/p fall DOI: 10/26/24. At his last visit he was given a 2lb weight limit and a velcro wrist brace for his snuffbox tenderness. Patient reports that he is having pain in the elbow, it is improving. He feels that this is more muscle soreness. He reports that the wrist is improving. Denies numbness and tingling. Allergies peanut (Peanut) Allergy (Severe, Verified 11/23/24 08:59) ANAPHYLAXIS Iodinated Contrast Media (Contrast Dye) Allergy (Verified 11/23/24 08:59) Hives peanuts Allergy (Unknown, Uncoded 11/23/24 08:59) Anaphylaxis HPI HPI OV-radial head fracture-four week follow up: Details: Kiel is a 29 year old right hand dominant male who presents today for a follow up visit for his left radial head fracture s/p fall DOI: 10/26/24. At his last visit he was given a 2lb weight limit and a velcro wrist brace for his snuffbox tenderness. Patient reports that he is having pain in the elbow, it is improving. He feels that this is more muscle soreness. He reports that the wrist is improving. Denies numbness and tingling. [facility] Social History (Updated 11/06/24 @ 09:14 by Dinora Hernandez) Unable to assess alcohol history related to: Unknown Alcohol intake: current Alcohol intake frequency: holidays/special occasions only Patient Tobacco Use Status: Current everyday Tobacco user Cigarette Packs Per Day: 1 Substance Use Type: Marijuana Current occupational status: employed Current occupation: shipping/receiving manager Manager/ right hand dominant Review of Systems Const All systems reviewed & are unremarkable except as noted in HPI and below Physical Exam Vital Signs: BMI result Body Mass Index 41.6 Extrem Other: Physical Exam - Musculoskeletal- Examination of the left elbow reveals tenderness upon palpation over the radial head. patient is able to flex to approximately 130 degrees and extend to approximately 0 degrees with the left elbow pronation to approximately 90 degrees and supination to approximately 80 degrees discomfort at both extremes of range of motion no edema, erythema, ecchymosis noted of the left elbow no lacerations, abrasions, open areas No further tenderness to palpation of the right anatomical snuffbox, scaphoid tubercle, or elsewhere in the wrist Results Reviewed Results Reviewed: X-rays obtained in the office today and independently reviewed by me, Coleman Friend PA-C, demonstrate nondisplaced fracture of the left radial neck with evidence of interval bony healing Assessment & Plan Assessment & Plan (1) Left radial head fracture: Code(s): S52.122A - Displaced fracture of head of left radius, initial encounter for closed fracture Category: Medical (2) Tenderness of anatomical snuffbox: Code(s): M79.643 - Pain in unspecified hand Category: Medical Plan 1. Left radial head fracture Date of injury 10/26/2024 Patient appears to be recovering well from this injury Patient is educated about the typical recovery course Should discontinue all sling use at this time Continue to work on range of motion of the left elbow 3-4 lb weight limit and left hand Avoid hyper pronation and supination Follow-up in 4 weeks Patient is amenable to this plan 2. Anatomical snuffbox and scaphoid tubercle tenderness of right wrist Date of injury 10/26/2024 Tenderness has completely resolved No need for further imaging at this time Orders: Orders XR elbow LT min 3V Today M25.522 - Pain in left elbow Coding Level of Care Code Global (41032) Diagnoses Left radial head fracture S52.122A Tenderness of anatomical snuffbox M79.643
== END 2024-12-21 09:14 | disposition home or self-care (01) ==
LOC: HO.HOS 08:49
DX: S52.122A Displaced fracture of head of left radius, initial encounter for closed fracture (principal); M79.642 Pain in left hand
CPT/HCPCS: 99213

== ENCOUNTER → 2024-12-21 08:50 | Outpatient (BNV) | payer OTHER, SELFPAY | PROVIDERS: Visit Provider Radiology Diagnostic Radiology | DX: S52.135 Nondisplaced fracture of neck of left radius (principal) | CPT/HCPCS: 73080 ==

== ENCOUNTER 2025-01-18 09:22 | Outpatient (AMB) | payer OTHER, SELFPAY ==
--- NOTE | 2025-01-18 09:25 | MHC.OFFVIS ---
Vital Signs 01/18/25 09:30 Height 5 ft 5 in Weight 265 lb BMI 44.1 Handedness Right Intake Visit Reasons: OV-left radial head fracture-w/xrays F/U Intake Note: Kiel is a 29 year old right hand dominant male who presents today for a follow up visit for his left radial head fracture s/p fall DOI: 10/26/24. During his last visit patient was advised he could continue to work on range of motion of the left elbow, 3-4 lb weight limit in left hand and avoid hyper pronation and supination. Currently he reports he his left arm is feeling pretty good. He states his only concern in the left hand is strength in lifting heavy objects. It has been improving but very slowly. He states 4 days ago on 01/14/25 his right hand went completely numb and would like to address this concern, he could not squeeze, transfer station attendant or move it at all. Allergies peanut (Peanut) Allergy (Severe, Verified 01/18/25 09:33) ANAPHYLAXIS Iodinated Contrast Media (Contrast Dye) Allergy (Verified 01/18/25 09:33) Hives peanuts Allergy (Unknown, Uncoded 01/18/25 09:33) Anaphylaxis HPI HPI OV-left radial head fracture-w/xrays F/U: Details: Kiel is a 29 year old right hand dominant male who presents today for a follow up visit for his left radial head fracture s/p fall DOI: 10/26/24. During his last visit patient was advised he could continue to work on range of motion of the left elbow, 3-4 lb weight limit in left hand and avoid hyper pronation and supination. Currently he reports he his left arm is feeling pretty good. He states his only concern in the left hand is strength in lifting heavy objects. It has been improving but very slowly. He states 4 days ago on 01/14/25 his right hand went completely numb and would like to address this concern, he could not squeeze, transfer station attendant or move it at all. 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 patient is able to flex to approximately 130 degrees and extend to approximately 0 degrees with the left elbow pronation to approximately 90 degrees and supination to approximately 90 degrees, no discomfort at both extremes of range of motion no edema, erythema, ecchymosis noted of the left elbow no lacerations, abrasions, open areas No further tenderness to palpation of the right anatomical snuffbox, scaphoid tubercle, or elsewhere in the wrist Normal sensation of the tips of all digits of the right hand in the office today Assessment & Plan Assessment & Plan (1) Left radial head fracture: Onset Date: ~10/26/24 Code(s): S52.122A - Displaced fracture of head of left radius, initial encounter for closed fracture Category: Medical (2) Tenderness of anatomical snuffbox: Code(s): M79.643 - Pain in unspecified hand Category: Medical (3) Numbness and tingling of right hand: Code(s): R20.0 - Anesthesia of skin; R20.2 - Paresthesia of skin Category: Medical Plan 1. Left radial head fracture Date of injury 10/26/2024 Patient appears to be recovering well from this injury Patient is educated about the typical recovery course Patient may begin a slow return back to full normal activity at this time, may increase over the next 3-4 weeks to normal lifting Follow-up as needed Patient is amenable to this plan 2. Numbness and tingling of right hand with associated weakness EMG and nerve conduction study ordered to assess the health of the nerves of the right upper extremity Patient will follow-up after this study for results review and discussion of further treatment options Patient is amenable to this plan Orders: Orders NE nerve conduction velocity Today R20.0 - Anesthesia of skin, R20.2 - Paresthesia of skin NE electromyogram (EMG) Today R20.0 - Anesthesia of skin, R20.2 - Paresthesia of skin Coding Level of Care Code Est Pt Level 3 (70212) Diagnoses Left radial head fracture S52.122A Tenderness of anatomical snuffbox M79.643 Numbness and tingling of right hand R20.0; R20.2
[2025-01-18 09:30] VITALS: BMI 44.1
--- OUTSIDE RECORDS SUMMARY | 2025-01-18 09:30 | XMS_ITS | Clinical Summary ---
Author Organization [employer] Address [address] [place] [address] [address] [place] [address] Care Team Providers Care Qa Lead Name Role Phone Unavailable Primary Care Provider [...] Use Screening 2005 Family Planning (PISQ) 2008 HPV Vaccines (1 - Male 3-dose series) 2008 Hepatitis C Screening 2011 Dental Oral [...]
--- OUTSIDE RECORDS SUMMARY | 2025-01-18 09:30 | XMS_ITS | Encounter Summary ---
Author Organization [facility] Address [address] [place] [address] Phone Care Team Providers Care Drawing Instructor Name Role Phone Reuben Long MD Primary Care Provider [phone] Encounter Details Date Type Department Care Team (Late st Contact Info) Description 08/16/2011 Documentation EM Family Medicine [address] [place] [address] Family Medicine, Physician [address] [place], [place] [phone] Social History Tobacco Use Types Packs/Day Years [...] on filedocumented in this encounter Care Teams Drawing Instructor Relationship Specialty Start Date End Date Reuben Long MD [address] [place] [address] PCP - General 01/21/17 09/21/22 documented as of this encounter
--- OUTSIDE RECORDS SUMMARY | 2025-01-18 09:30 | XMS_ITS | Patient Health Record ---
Author Organization [facility] Address [address] [place] [address] Care Team Providers Care Buddhist Monk Name Role Phone Heydi Castillo Primary Care Provider UnavailBipin Parrish Jr Unavailable [phone] Allergies Allergen (clinical drug ingredient) Drug/Non Drug [...] Problem Status W/U Status Risk Notes Problem [id number] Rectal bleeding (569.3) Active confirmed Plan Of Treatment No Information Insurance Providers Payer Name Payer Address Payer Phone Subscriber Number Group Number Insured Name Patient Relationship to Insured Coverage Start Date Coverage End Date [facility] [address] [facility] [place] [phone] [id number] NORA MEJIA Self - patient is the insured Medical (General) History Medical History History ICD Code Denies [place],DM,CVA,renal disease asthma Surgical History Surgery Date(Month/Year) lip surgery
== END 2025-01-18 09:45 | disposition home or self-care (01) ==
LOC: HO.HOS 09:23
DX: S52.122A Displaced fracture of head of left radius, initial encounter for closed fracture (principal); M79.643 Pain in unspecified hand; R20.0 Anesthesia of skin; R20.2 Paresthesia of skin
CPT/HCPCS: 99213